=== PATIENT | female | born 1945 | race Caucasian/White ===

== ENCOUNTER 2017-01-27 11:30 | Outpatient (CLI) | payer MEDICARE, OTHER | END 2017-01-27 11:31 | DX: M05.79 Rheumatoid arthritis with rheumatoid factor of multiple sites without organ or systems involvement (principal) ==

== ENCOUNTER 2017-05-17 10:35 | Outpatient (CLI) | payer MEDICARE, OTHER ==
[2017-05-17 19:20] LABS: BASOPHILS # (AUTO) 0.1 10^3/uL (0.0-0.1); BASOPHILS % (AUTO) 1.2 %; EOSINOPHILS # (AUTO) 0.2 10^3/uL (0.0-0.7); EOSINOPHILS % (AUTO) 3.2 %; HGB - HEMOGLOBIN 13.7 g/dL (12.0-16.0); LYMPHOCYTES # (AUTO) 1.7 10^3/uL (1.5-3.5); LYMPHOCYTES % (AUTO) 35.6 %; MEAN CORPUSCULAR HEMOGLOBIN 33.2 pg (27.0-31.0); MEAN CORPUSCULAR HGB CONC 33.5 g/dL (32.0-36.0); MEAN CORPUSCULAR VOLUME 99.2 fL (81.0-99.0); MEAN PLATELET VOLUME 10.6 fL (7.9-10.8); MONOCYTES # (AUTO) 0.6 10^3/uL (0.0-1.0); NEUTROPHILS # (AUTO) 2.3 10^3/uL (1.5-6.6); NUCLEATED RED BLOOD CELLS AUTO 0.1 /100WBC; RED BLOOD COUNT 4.13 10^6/uL (4.20-5.40); RED CELL DISTRIBUTION WIDTH 13.2 % (12.0-15.0); UNCORRECTED WHITE BLOOD COUNT 4.9 x10^3/uL; WHITE BLOOD COUNT 4.9 x10^3/uL (4.8-10.8)
[2017-05-17 19:33] LABS: ALBUMIN/GLOBULIN RATIO 1.9 (1.0-2.2); BILIRUBIN,TOTAL 0.8 mg/dL (0.2-1.0); CALCIUM 9.5 mg/dL (8.5-10.3); CREATININE 0.8 mg/dL (0.4-1.0); POTASSIUM 3.9 mmol/L (3.5-5.0); TOTAL PROTEIN 6.7 g/dL (6.7-8.2)
== END 2017-05-17 10:36 ==
LOC: LAB.WCP 10:35
PROVIDERS: ATTEND Internal Medicine Rheumatology
DX: M05.79 Rheumatoid arthritis with rheumatoid factor of multiple sites without organ or systems involvement (principal)
CPT/HCPCS: 36415; 80053; 85025; 85651

== ENCOUNTER 2017-09-14 08:00 | Outpatient (CLI) | payer MEDICARE, OTHER ==
[2017-09-14 19:23] LABS: BASOPHILS # (AUTO) 0.1 10^3/uL (0.0-0.1); BASOPHILS % (AUTO) 0.9 %; EOSINOPHILS # (AUTO) 0.2 10^3/uL (0.0-0.7); EOSINOPHILS % (AUTO) 2.7 %; HCT - HEMATOCRIT 41.1 % (37.0-47.0); HGB - HEMOGLOBIN 13.4 g/dL (12.0-16.0); LYMPHOCYTES # (AUTO) 1.6 10^3/uL (1.5-3.5); LYMPHOCYTES % (AUTO) 25.5 %; MEAN CORPUSCULAR HGB CONC 32.6 g/dL (32.0-36.0); MEAN CORPUSCULAR VOLUME 101.2 fL (81.0-99.0); MEAN PLATELET VOLUME 10.6 fL (7.9-10.8); MONOCYTES # (AUTO) 0.7 10^3/uL (0.0-1.0); NEUTROPHILS # (AUTO) 3.8 10^3/uL (1.5-6.6); NEUTROPHILS % (AUTO) 59.9 %; NUCLEATED RED BLOOD CELLS AUTO 0.1 /100WBC; RED BLOOD COUNT 4.06 10^6/uL (4.20-5.40); RED CELL DISTRIBUTION WIDTH 13.7 % (12.0-15.0); UNCORRECTED WHITE BLOOD COUNT 6.3 x10^3/uL; WHITE BLOOD COUNT 6.3 x10^3/uL (4.8-10.8)
[2017-09-14 19:26] LABS: ALBUMIN/GLOBULIN RATIO 2.2 (1.0-2.2); BILIRUBIN,TOTAL 0.7 mg/dL (0.2-1.0); CALCIUM 9.5 mg/dL (8.5-10.3); CREATININE 0.7 mg/dL (0.4-1.0); POTASSIUM 3.8 mmol/L (3.5-5.0); TOTAL PROTEIN 6.3 g/dL (6.7-8.2)
== END 2017-09-14 08:01 ==
LOC: LAB.WCP 08:00
PROVIDERS: ATTEND Internal Medicine Rheumatology
DX: M05.79 Rheumatoid arthritis with rheumatoid factor of multiple sites without organ or systems involvement (principal)
CPT/HCPCS: 36415; 80053; 85025; 85651

== ENCOUNTER 2017-11-11 15:27 | Outpatient (CLI) | payer MEDICARE, OTHER ==
--- NOTE | 2017-11-12 16:31 | Mammography Report ---
DATE OF SERVICE: 11/11/2017 DIGITAL SCREENING MAMMOGRAM: 11/11/2017 CLINICAL INDICATION: A 72-year-old, for screening. COMPARISON: 02/2016, 10/2013, 02/2012, 12/2009, 02/2011. TECHNIQUE: Routine CC and MLO projections were obtained of the breasts. FINDINGS: Scattered fibroglandular tissue is present within the breasts. There are no dominant masses, suspicious microcalcifications, or secondary signs of malignancy. In comparison to the previous studies, there are no significant changes. ASSESSMENT: NO MAMMOGRAPHIC EVIDENCE OF MALIGNANCY. NO SIGNIFICANT INTERVAL CHANGES. RECOMMENDATION: Screening mammography is recommended annually. BIRADS category 1 - negative. STANDARD QUALIFYING STATEMENTS: 1. This examination was reviewed with the aid of Computed-Aided Detection (CAD). 2. A negative or benign imaging report should not delay biopsy if clinically suspicious findings are present. Consider surgical consultation if warranted. More than 5% of cancers are not identified by imaging. 3. Dense breasts may obscure an underlying neoplasm. TD: 11/12/2017 17:29
== END 2017-11-11 15:28 | disposition home or self-care (01) ==
LOC: DI 15:27
PROVIDERS: ATTEND Internal Medicine
DX: Z12.31 Encounter for screening mammogram for malignant neoplasm of breast (principal)
CPT/HCPCS: 77067

== ENCOUNTER 2018-03-30 08:00 | Outpatient (CLI) | payer MEDICARE, OTHER ==
[2018-03-30 19:38] LABS: BASOPHILS # (AUTO) 0.1 10^3/uL (0.0-0.1); BASOPHILS % (AUTO) 1.2 %; EOSINOPHILS # (AUTO) 0.2 10^3/uL (0.0-0.7); EOSINOPHILS % (AUTO) 2.2 %; HGB - HEMOGLOBIN 14.2 g/dL (12.0-16.0); LYMPHOCYTES # (AUTO) 1.9 10^3/uL (1.5-3.5); LYMPHOCYTES % (AUTO) 26.7 %; MEAN CORPUSCULAR HEMOGLOBIN 33.5 pg (27.0-31.0); MEAN CORPUSCULAR VOLUME 101.4 fL (81.0-99.0); MEAN PLATELET VOLUME 10.4 fL (7.9-10.8); MONOCYTES # (AUTO) 0.8 10^3/uL (0.0-1.0); MONOCYTES % (AUTO) 12.1 %; NEUTROPHILS # (AUTO) 4.1 10^3/uL (1.5-6.6); NEUTROPHILS % (AUTO) 57.8 %; PLT - PLATELET COUNT 185 10^3/uL (130-450); RED BLOOD COUNT 4.24 10^6/uL (4.20-5.40); RED CELL DISTRIBUTION WIDTH 13.3 % (12.0-15.0)
[2018-03-30 19:50] LABS: ALBUMIN 4.3 g/dL (3.2-5.5); ALBUMIN/GLOBULIN RATIO 1.5 (1.0-2.2); BILIRUBIN,TOTAL 0.8 mg/dL (0.2-1.0); CALCIUM 9.4 mg/dL (8.5-10.3); CREATININE 0.8 mg/dL (0.4-1.0); TOTAL PROTEIN 7.1 g/dL (6.7-8.2)
== END 2018-03-30 08:01 | disposition home or self-care (01) ==
LOC: LAB.WCP 08:00
PROVIDERS: ATTEND Internal Medicine Rheumatology
DX: M05.79 Rheumatoid arthritis with rheumatoid factor of multiple sites without organ or systems involvement (principal)
CPT/HCPCS: 36415; 80053; 83036; 85025; 85651

== ENCOUNTER 2018-07-23 10:56 | Emergency (ER) | payer MEDICARE, OTHER ==
--- NOTE | 2018-07-23 11:17 | ED Physician Documentation ---
PD HPI FEMALE - Stated complaint Stated Complaint: FEMALE - Chief complaint Chief Complaint: UTI - History obtained from History obtained from: Patient, Family - History of Present Illness Timing - onset: How many days ago (3) Timing - duration: Days (3) Timing - details: Gradual onset, Still present Associated symptoms: Dysuria, Urinary frequency Similar symptoms before: Diagnosis (UTI) Recently seen: Not recently seen - Additional information Additional information: 73-year-old female with a history of rheumatoid arthritis has had a number of urinary tract infections in the past and she now has symptoms again of urinary urgency frequency and dysuria. She said symptoms for about 3 days and she is been drinking a lot of extra fluids without resolution of her symptoms. She is noted a little blood in her urine this morning. 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 Cardiovascular: Valve replacement - Present Medications Home Medications: Ambulatory Orders Medication Instructions Recorded Confirmed Leflunomide [Arava] 10 mg PO DAILY 09/22/15 07/23/18 RX: Hydrochlorothiazide 12.5 mg PO DAILY 09/22/15 07/23/18 sulfaSALAzine [Azulfidine] 1,000 mg PO BID 09/22/15 07/23/18 Calcium Carbonate [Calcium] 1 tab PO DAILY 07/23/18 07/23/18 Cholecalciferol (Vitamin D3) 1 cap PO DAILY 07/23/18 07/23/18 [Vitamin D3] Loratadine [Claritin] 1 tab PO DAILY 07/23/18 07/23/18 Phenazopyridine [Pyridium] 100 - 200 mg PO TID PRN #12 tablet 07/23/18 RX: Aspirin [Adult Aspirin] 1 tab PO DAILY 07/23/18 07/23/18 Sulfamethoxazole/Trimethoprim 1 each PO BID #14 tablet 07/23/18 [Sulfamethoxazole-Tmp Ds Tablet] - Allergies Allergies/Adverse Reactions: Allergies Allergy/AdvReac Type Severity Reaction Status Date / Time No Known Drug Allergies Allergy Verified 07/23/18 11:18 - Social History Does the pt smoke?: No Smoking Status: Never smoker Does the pt drink ETOH?: Yes Does the pt have substance abuse?: No - Immunizations Immunizations are current?: No Immunizations: TDAP >10years/unknown - POLST Patient has POLST: No PD ED PE NORMAL - Vitals Vital signs reviewed: Yes (hypertensive ) - General General: Alert and oriented X 3, No acute distress, Well developed/nourished - HEENT HEENT: Atraumatic, PERRL - Respiratory Respiratory: No respiratory distress - Back Back: No CVA TTP, No spinal TTP - Derm Derm: Normal color, Warm and dry, No rash - Extremities Extremities: No deformity, No edema - Neuro Neuro: Alert and oriented X 3, special programs director 2-12 intact, No motor deficit, No sensory deficit, Normal speech Eye Opening: Spontaneous Motor: Obeys Commands Verbal: Oriented GCS Score: 15 - Psych Psych: Normal mood, Normal affect Results - Vitals Vitals: Vital Signs - 24 hr 07/23/18 11:02 Temperature 35.9 C L Heart Rate 88 Respiratory 18 Rate Blood Pressure 152/91 H O2 Saturation 100 Oxygen O2 Source Room air PD MEDICAL DECISION MAKING - ED course Complexity details: reviewed results, considered differential, d/w patient, d/w family ED course: 73-year-old female with a urinary tract infection without evidence of Pyelo or complication. - Sepsis Event Vital Signs: Vital Signs - 24 hr 07/23/18 11:02 Temperature 35.9 C L Heart Rate 88 Respiratory 18 Rate Blood Pressure 152/91 H O2 Saturation 100 Oxygen O2 Source Room air Departure - Departure Disposition: 01 Home, Self Care Clinical Impression: Urinary tract infection Instructions: ED UTI Cystitis Female Follow-Up: Malick Perez MD [Primary Care Provider] - Prescriptions: Phenazopyridine [Pyridium] 100 - 200 mg PO TID PRN #12 tablet PRN Reason: urinary symptoms Sulfamethoxazole/Trimethoprim [Sulfamethoxazole-Tmp Ds Tablet] 1 each PO BID #14 tablet Discharge Date/Time: 07/23/18 12:44
[2018-07-23 11:26] LABS: BILIRUBIN,URINE NEGATIVE (NEGATIVE); GLUCOSE, URINE (UA) NEGATIVE (NEGATIVE); KETONES,URINE (UA) NEGATIVE (NEGATIVE); LEUKOCYTE ESTERASE, URINE SMALL (NEGATIVE); NITRITE,URINE NEGATIVE (NEGATIVE); OCCULT BLOOD,URINE LARGE (NEGATIVE); PH,URINE 6.5 PH (5.0-7.5); PROTEIN,URINE NEGATIVE (NEGATIVE); UROBILINOGEN,URINE 0.2 (NORMAL) E.U./dL (NORMAL)
[2018-07-23 11:28] LABS: CLARITY,URINE CLEAR (CLEAR)
[2018-07-23 11:39] LABS: BACTERIA,URINE Rare /HPF (None Seen); RBC,URINE 0-5 /HPF (0-5); SQUAMOUS EPITHELIAL CELL,UR RARE Squamous (<= Few)
[2018-07-23 12:31] VITALS: BP 135/87
== END 2018-07-23 12:44 | disposition home or self-care (01) ==
LOC: ED 10:56
DX: N39.0 Urinary tract infection, site not specified (principal); I10 Essential (primary) hypertension; M06.9 Rheumatoid arthritis, unspecified; Z79.82 Long term (current) use of aspirin; Z87.440 Personal history of urinary (tract) infections; Z95.2 Presence of prosthetic heart valve
CPT/HCPCS: 81001; 81003; 87086; 87181; 99283

== ENCOUNTER 2018-09-13 13:26 | Outpatient (CLI) | payer MEDICARE, OTHER ==
[2018-09-13 13:45] LABS: BASOPHILS % (AUTO) 0.6 %; EOSINOPHILS # (AUTO) 0.1 10^3/uL (0.0-0.7); EOSINOPHILS % (AUTO) 1.7 %; HGB - HEMOGLOBIN 13.6 g/dL (12.0-16.0); LYMPHOCYTES # (AUTO) 1.8 10^3/uL (1.5-3.5); LYMPHOCYTES % (AUTO) 25.7 %; MEAN CORPUSCULAR HGB CONC 34.4 g/dL (32.0-36.0); MONOCYTES # (AUTO) 0.8 10^3/uL (0.0-1.0); MONOCYTES % (AUTO) 12.4 %; NEUTROPHILS # (AUTO) 4.1 10^3/uL (1.5-6.6); NEUTROPHILS % (AUTO) 59.6 %; PLT - PLATELET COUNT 193 10^3/uL (130-450); RED BLOOD COUNT 4.01 10^6/uL (4.20-5.40); RED CELL DISTRIBUTION WIDTH 13.2 % (12.0-15.0); WHITE BLOOD COUNT 6.8 x10^3/uL (4.8-10.8)
[2018-09-13 14:00] LABS: ALBUMIN 4.7 g/dL (3.2-5.5); ALBUMIN/GLOBULIN RATIO 2.1 (1.0-2.2); BILIRUBIN,TOTAL 0.8 mg/dL (0.2-1.0); CALCIUM 9.2 mg/dL (8.5-10.3); CREATININE 0.6 mg/dL (0.4-1.0); TOTAL PROTEIN 6.9 g/dL (6.7-8.2)
== END 2018-09-13 13:27 | disposition home or self-care (01) ==
LOC: LAB 13:26
PROVIDERS: ATTEND Internal Medicine Rheumatology
DX: M05.79 Rheumatoid arthritis with rheumatoid factor of multiple sites without organ or systems involvement (principal)
CPT/HCPCS: 36415; 80053; 85025; 85651

== ENCOUNTER 2018-12-07 12:05 | Outpatient (CLI) | payer MEDICARE, OTHER ==
[2018-12-07 19:34] LABS: EOSINOPHILS # (AUTO) 0.1 10^3/uL (0.0-0.7); EOSINOPHILS % (AUTO) 2.4 %; HGB - HEMOGLOBIN 13.3 g/dL (12.0-16.0); LYMPHOCYTES # (AUTO) 1.1 10^3/uL (1.5-3.5); LYMPHOCYTES % (AUTO) 29.4 %; MEAN CORPUSCULAR HEMOGLOBIN 34.1 pg (27.0-31.0); MEAN CORPUSCULAR HGB CONC 32.9 g/dL (32.0-36.0); MEAN CORPUSCULAR VOLUME 103.6 fL (81.0-99.0); MEAN PLATELET VOLUME 10.5 fL (7.9-10.8); MONOCYTES # (AUTO) 0.6 10^3/uL (0.0-1.0); MONOCYTES % (AUTO) 15.8 %; NEUTROPHILS # (AUTO) 1.9 10^3/uL (1.5-6.6); NEUTROPHILS % (AUTO) 51.4 %; PLT - PLATELET COUNT 170 10^3/uL (130-450); RED BLOOD COUNT 3.91 10^6/uL (4.20-5.40); WHITE BLOOD COUNT 3.7 x10^3/uL (4.8-10.8)
[2018-12-07 20:08] LABS: ALBUMIN 4.3 g/dL (3.2-5.5); ALBUMIN/GLOBULIN RATIO 2.4 (1.0-2.2); BILIRUBIN,TOTAL 0.9 mg/dL (0.2-1.0); CALCIUM 9.3 mg/dL (8.5-10.3); CREATININE 0.7 mg/dL (0.4-1.0); TOTAL PROTEIN 6.1 g/dL (6.7-8.2)
== END 2018-12-07 12:06 | disposition home or self-care (01) ==
LOC: LAB.WCP 12:05
PROVIDERS: ATTEND Internal Medicine Rheumatology
DX: M05.79 Rheumatoid arthritis with rheumatoid factor of multiple sites without organ or systems involvement (principal)
CPT/HCPCS: 36415; 80053; 85025; 85651

== ENCOUNTER 2018-12-23 18:08 | Emergency (ER) | payer MEDICARE, OTHER ==
[2018-12-23 18:33] VITALS: BP 142/91
[2018-12-23 19:59] LABS: BILIRUBIN,URINE NEGATIVE (NEGATIVE); GLUCOSE, URINE (UA) NEGATIVE (NEGATIVE); KETONES,URINE (UA) NEGATIVE (NEGATIVE); LEUKOCYTE ESTERASE, URINE SMALL (NEGATIVE); NITRITE,URINE NEGATIVE (NEGATIVE); OCCULT BLOOD,URINE TRACE-INTA (NEGATIVE); PH,URINE 6.5 PH (5.0-7.5); PROTEIN,URINE NEGATIVE (NEGATIVE); UROBILINOGEN,URINE 0.2 (NORMAL) E.U./dL (NORMAL)
--- NOTE | 2018-12-23 20:01 | ED Physician Documentation ---
PD HPI FEMALE - Stated complaint Stated Complaint: FEMALE - Chief complaint Chief Complaint: UTI - History obtained from History obtained from: Patient - History of Present Illness Timing - onset: Yesterday Timing - duration: Days (2) Timing - details: Gradual onset Pain level max: 0 Pain level max: 0 Associated symptoms: Dysuria, Urinary frequency. 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 Cardiovascular: Valve replacement - Present Medications Home Medications: Ambulatory Orders Medication Instructions Recorded Confirmed Hydrochlorothiazide 12.5 mg PO DAILY 09/22/15 07/23/18 Leflunomide [Arava] 10 mg PO DAILY 09/22/15 07/23/18 sulfaSALAzine [Azulfidine] 1,000 mg PO BID 09/22/15 07/23/18 Aspirin [Adult Aspirin] 1 tab PO DAILY 07/23/18 07/23/18 Calcium Carbonate [Calcium] 1 tab PO DAILY 07/23/18 07/23/18 Cholecalciferol (Vitamin D3) 1 cap PO DAILY 07/23/18 07/23/18 [Vitamin D3] Loratadine [Claritin] 1 tab PO DAILY 07/23/18 07/23/18 Phenazopyridine [Pyridium] 100 - 200 mg PO TID PRN #12 tablet 07/23/18 Sulfamethoxazole/Trimethoprim 1 each PO BID #14 tablet 07/23/18 [Sulfamethoxazole-Tmp Ds Tablet] Cephalexin [Keflex] 500 mg PO Q6H #20 capsule 12/23/18 Phenazopyridine HCl [Pyridium] 200 mg PO TID PRN #6 tablet 12/23/18 - Allergies Allergies/Adverse Reactions: Allergies Allergy/AdvReac Type Severity Reaction Status Date / Time No Known Drug Allergies Allergy Verified 12/23/18 18:27 - Social History Does the pt smoke?: No Smoking Status: Never smoker Does the pt drink ETOH?: Yes Does the pt have substance abuse?: No - Immunizations Immunizations are current?: No Immunizations: TDAP >10years/unknown - POLST Patient has POLST: No PD ED PE NORMAL - Vitals Vital signs reviewed: Yes - General General: Alert and oriented X 3, No acute distress, Well developed/nourished - HEENT HEENT: PERRL, Moist mucous membranes - Neck Neck: Supple, no meningeal sign - Cardiac Cardiac: RRR - Respiratory Respiratory: No respiratory distress, Clear bilaterally - Abdomen Abdomen: Soft, Non tender, Non distended - Back Back: No CVA TTP, No spinal TTP - Derm Derm: Warm and dry, No rash - Extremities Extremities: No edema - Neuro Neuro: Alert and oriented X 3 - Psych Psych: Normal mood, Normal affect Results - Vitals Vitals: Vital Signs - 24 hr 12/23/18 18:27 Temperature 36.6 C Heart Rate 84 Respiratory 16 Rate Blood Pressure 142/91 H O2 Saturation 97 Oxygen O2 Source Room air - Labs Labs: Laboratory Tests 12/23/18 19:49 Urine Color YELLOW Urine Clarity CLEAR Urine pH 6.5 Ur Specific [place] 1.015 Urine Protein NEGATIVE Urine Glucose (UA) NEGATIVE Urine Ketones NEGATIVE Urine Occult Blood TRACE-INTA Urine Nitrite NEGATIVE Urine Bilirubin NEGATIVE Urine Urobilinogen 0.2 (NORMAL) Ur Leukocyte Esterase SMALL H Urine RBC 0-5 Urine WBC 11-25 H Ur Squamous Epith Cells RARE Squamous Urine Bacteria Rare Ur Microscopic Review INDICATED Urine Culture Comments INDICATED PD MEDICAL DECISION MAKING - ED course Complexity details: reviewed results, re-evaluated patient, considered differential, d/w patient ED course: Patient with a UTI. Will place on antibiotics and follow-up with her doctor. No evidence of pyelonephritis. She is well-appearing, nontoxic. Afebrile. Patient counseled regarding signs and symptoms for which I believe and urgent re-evaluation would be necessary. Patient with good understanding of and agreement to plan and is comfortable going home at this time This document was made in part using voice recognition software. While efforts are made to proofread this document, sound alike and grammatical errors may occur. Departure - Departure Disposition: 01 Home, Self Care Clinical Impression: Urinary tract infection Qualifiers: Urinary tract infection type: acute cystitis Hematuria presence: without hematuria Qualified Code(s): N30.00 - Acute cystitis without hematuria Condition: Good Instructions: ED UTI Cystitis Female Follow-Up: Malick Perez MD [Primary Care Provider] - Within 1 week Prescriptions: Cephalexin [Keflex] 500 mg PO Q6H #20 capsule Phenazopyridine HCl [Pyridium] 200 mg PO TID PRN #6 tablet PRN Reason: dysuria Comments: Take all antibiotics until gone. Return if you worsen. Follow-up with your doctor for further care. Discharge Date/Time: 12/23/18 20:27
[2018-12-23 20:05] LABS: BACTERIA,URINE Rare /HPF (None Seen); CLARITY,URINE CLEAR (CLEAR); RBC,URINE 0-5 /HPF (0-5); SQUAMOUS EPITHELIAL CELL,UR RARE Squamous (<= Few)
[2018-12-23] MEDS ORDERED: PHENAZOPYRIDINE 100 MG TABLET PO STA (20:20)
[2018-12-23] MEDS ORDERED: cephALEXin 250 MG CAPSULE PO STA (20:20)
== END 2018-12-23 20:27 | disposition home or self-care (01) ==
LOC: ED 18:08
DX: N30.00 Acute cystitis without hematuria (principal); I10 Essential (primary) hypertension
CPT/HCPCS: 81001; 87086; 87181; 99283; A9270; 81003

== ENCOUNTER 2019-04-12 08:00 | Outpatient (CLI) | payer MEDICARE, OTHER ==
[2019-04-12 18:59] LABS: BASOPHILS # (AUTO) 0.1 10^3/uL (0.0-0.1); BASOPHILS % (AUTO) 1.5 %; EOSINOPHILS # (AUTO) 0.1 10^3/uL (0.0-0.7); EOSINOPHILS % (AUTO) 2.6 %; HGB - HEMOGLOBIN 13.2 g/dL (12.0-16.0); LYMPHOCYTES # (AUTO) 1.5 10^3/uL (1.5-3.5); LYMPHOCYTES % (AUTO) 32.5 %; MEAN CORPUSCULAR HEMOGLOBIN 32.3 pg (27.0-31.0); MEAN CORPUSCULAR HGB CONC 30.3 g/dL (32.0-36.0); MEAN CORPUSCULAR VOLUME 106.6 fL (81.0-99.0); MEAN PLATELET VOLUME 12.5 fL (7.9-10.8); MONOCYTES # (AUTO) 0.7 10^3/uL (0.0-1.0); MONOCYTES % (AUTO) 15.4 %; NEUTROPHILS # (AUTO) 2.2 10^3/uL (1.5-6.6); NEUTROPHILS % (AUTO) 47.6 %; PLT - PLATELET COUNT 186 10^3/uL (130-450); RED BLOOD COUNT 4.09 10^6/uL (4.20-5.40); RED CELL DISTRIBUTION WIDTH 13.2 % (12.0-15.0); WHITE BLOOD COUNT 4.6 x10^3/uL (4.8-10.8)
[2019-04-12 19:26] LABS: ALBUMIN 4.5 g/dL (3.2-5.5); CALCIUM 9.6 mg/dL (8.5-10.3); CREATININE 0.7 mg/dL (0.4-1.0)
== END 2019-04-12 23:59 | disposition home or self-care (01) ==
LOC: LAB.WCP 08:00
PROVIDERS: ATTEND Internal Medicine Rheumatology
DX: M05.79 Rheumatoid arthritis with rheumatoid factor of multiple sites without organ or systems involvement (principal)
CPT/HCPCS: 36415; 80053; 85025; 85651

== ENCOUNTER 2019-07-19 15:12 | Outpatient (CLI) | payer MEDICARE, OTHER ==
[2019-07-19 18:41] LABS: BASOPHILS # (AUTO) 0.1 10^3/uL (0.0-0.1); BASOPHILS % (AUTO) 1.1 %; EOSINOPHILS # (AUTO) 0.2 10^3/uL (0.0-0.7); EOSINOPHILS % (AUTO) 2.5 %; HGB - HEMOGLOBIN 13.7 g/dL (12.0-16.0); LYMPHOCYTES % (AUTO) 24.4 %; MEAN CORPUSCULAR HEMOGLOBIN 32.6 pg (27.0-31.0); MEAN CORPUSCULAR HGB CONC 31.6 g/dL (32.0-36.0); MEAN CORPUSCULAR VOLUME 103.1 fL (81.0-99.0); MEAN PLATELET VOLUME 12.3 fL (7.9-10.8); NEUTROPHILS # (AUTO) 4.8 10^3/uL (1.5-6.6); NEUTROPHILS % (AUTO) 59.6 %; PLT - PLATELET COUNT 204 10^3/uL (130-450); RED CELL DISTRIBUTION WIDTH 12.7 % (12.0-15.0)
[2019-07-19 18:57] LABS: ALBUMIN 4.7 g/dL (3.2-5.5); ALBUMIN/GLOBULIN RATIO 2.1 (1.0-2.2); BILIRUBIN,TOTAL 0.8 mg/dL (0.2-1.0); CALCIUM 9.5 mg/dL (8.5-10.3); CREATININE 0.7 mg/dL (0.4-1.0); TOTAL PROTEIN 6.9 g/dL (6.7-8.2)
== END 2019-07-19 15:13 | disposition home or self-care (01) ==
LOC: LAB.WCP 15:12
PROVIDERS: ATTEND Internal Medicine Rheumatology
DX: M06.9 Rheumatoid arthritis, unspecified (principal)
CPT/HCPCS: 36415; 80053; 85025; 85651

== ENCOUNTER 2019-09-03 20:38 | Emergency (ER) | payer MEDICARE, OTHER ==
[2019-09-03 20:52] VITALS: BP 146/89
--- NOTE | 2019-09-03 20:57 | ED Physician Documentation ---
PD HPI FEMALE - Stated complaint Stated Complaint: FEMALE - Chief complaint Chief Complaint: UTI - History obtained from History obtained from: Patient - History of Present Illness Timing - onset: Today Timing - details: Gradual onset Associated symptoms: Dysuria, Urinary frequency, Hematuria. 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 Cardiovascular: Valve replacement - Present Medications Home Medications: Ambulatory Orders Medication Instructions Recorded Confirmed Hydrochlorothiazide 12.5 mg PO DAILY 09/22/15 07/23/18 Leflunomide [Arava] 10 mg PO DAILY 09/22/15 07/23/18 sulfaSALAzine [Azulfidine] 1,000 mg PO BID 09/22/15 07/23/18 Aspirin [Adult Aspirin] 1 tab PO DAILY 07/23/18 07/23/18 Cholecalciferol (Vitamin D3) 1 cap PO DAILY 07/23/18 07/23/18 [Vitamin D3] Loratadine [Claritin] 1 tab PO DAILY 07/23/18 07/23/18 Cephalexin [Keflex] 500 mg PO Q6H #28 capsule 09/03/19 Multivitamin [Multiple Vitamins] 1 each PO DAILY 09/03/19 09/03/19 Phenazopyridine HCl [Pyridium] 200 mg PO TID PRN #6 tablet 09/03/19 - Allergies Allergies/Adverse Reactions: Allergies Allergy/AdvReac Type Severity Reaction Status Date / Time No Known Drug Allergies Allergy Verified 09/03/19 21:06 - Social History Does the pt smoke?: No Smoking Status: Never smoker Does the pt drink ETOH?: Yes Does the pt have substance abuse?: No - Immunizations Immunizations are current?: No Immunizations: TDAP >10years/unknown - POLST Patient has POLST: No PD ED PE NORMAL - Vitals Vital signs reviewed: Yes - General General: Alert and oriented X 3, No acute distress, Well developed/nourished - Abdomen Abdomen: Soft, Non tender - Back Back: No CVA TTP Results - Vitals Vitals: Vital Signs - 24 hr 09/03/19 20:49 Temperature 36.6 C Heart Rate 98 Respiratory 20 Rate Blood Pressure 146/89 H O2 Saturation 100 Oxygen O2 Source Room air - Labs Labs: Laboratory Tests 09/03/19 20:49 Urine Color RED/BLOODY Urine Clarity BLOODY Urine pH 6.0 Ur Specific [place] 1.020 Urine Protein 100 H Urine Glucose (UA) NEGATIVE Urine Ketones NEGATIVE Urine Occult Blood LARGE H Urine Nitrite POSITIVE H Urine Bilirubin NEGATIVE Urine Urobilinogen 0.2 (NORMAL) Ur Leukocyte Esterase LARGE H Urine RBC TNTC H Urine WBC 11-25 H Urine WBC Clumps PRESENT Ur Squamous Epith Cells NONE SEEN Urine Bacteria Few Ur Microscopic Review INDICATED Urine Culture Comments INDICATED PD MEDICAL DECISION MAKING - ED course Complexity details: reviewed results, considered differential, d/w patient Departure - Departure Disposition: 01 Home, Self Care Clinical Impression: Urinary tract infection Condition: Good Instructions: ED UTI Cystitis Female Follow-Up: Malick Perez MD [Primary Care Provider] - Prescriptions: Cephalexin [Keflex] 500 mg PO Q6H #28 capsule Phenazopyridine HCl [Pyridium] 200 mg PO TID PRN #6 tablet PRN Reason: dysuria Discharge Date/Time: 09/03/19 21:33
[2019-09-03 21:10] LABS: BILIRUBIN,URINE NEGATIVE (NEGATIVE); GLUCOSE, URINE (UA) NEGATIVE (NEGATIVE); KETONES,URINE (UA) NEGATIVE (NEGATIVE); LEUKOCYTE ESTERASE, URINE LARGE (NEGATIVE); NITRITE,URINE POSITIVE (NEGATIVE); OCCULT BLOOD,URINE LARGE (NEGATIVE); PROTEIN,URINE 100 mg/dL (NEGATIVE); UROBILINOGEN,URINE 0.2 (NORMAL) E.U./dL (NORMAL)
[2019-09-03 21:24] LABS: CLARITY,URINE BLOODY (CLEAR)
[2019-09-03] MEDS ORDERED: cephALEXin 250 MG CAPSULE PO STA (21:26)
[2019-09-03] MEDS ORDERED: PHENAZOPYRIDINE 100 MG TABLET PO STA (21:26)
[2019-09-03 21:31] LABS: WBC CLUMPS,URINE PRESENT
[2019-09-03 21:32] LABS: BACTERIA,URINE Few /HPF (None Seen); RBC,URINE TNTC /HPF (0-5); SQUAMOUS EPITHELIAL CELL,UR NONE SEEN (<= Few)
== END 2019-09-03 21:33 | disposition home or self-care (01) ==
LOC: ED 20:38
DX: N39.0 Urinary tract infection, site not specified (principal); I10 Essential (primary) hypertension; Z95.2 Presence of prosthetic heart valve; Z79.82 Long term (current) use of aspirin
CPT/HCPCS: 81001; 87086; 87181; 99283; A9270; 81003

== ENCOUNTER 2019-11-07 01:40 | Emergency (ER) | payer MEDICARE, OTHER ==
[2019-11-07 01:52] VITALS: BP 148/85
[2019-11-07 01:55] LABS: BILIRUBIN,URINE NEGATIVE (NEGATIVE); GLUCOSE, URINE (UA) NEGATIVE (NEGATIVE); KETONES,URINE (UA) NEGATIVE (NEGATIVE); LEUKOCYTE ESTERASE, URINE LARGE (NEGATIVE); NITRITE,URINE POSITIVE (NEGATIVE); OCCULT BLOOD,URINE LARGE (NEGATIVE); PROTEIN,URINE 100 mg/dL (NEGATIVE); UROBILINOGEN,URINE 0.2 (NORMAL) E.U./dL (NORMAL)
[2019-11-07 02:09] LABS: BACTERIA,URINE Moderate /HPF (None Seen); CLARITY,URINE CLOUDY (CLEAR); RBC,URINE TNTC /HPF (0-5); SQUAMOUS EPITHELIAL CELL,UR RARE Squamous (<= Few)
--- NOTE | 2019-11-07 02:31 | ED Physician Documentation ---
PD HPI FEMALE - Stated complaint Stated Complaint: FEM - Chief complaint Chief Complaint: UTI - History obtained from History obtained from: Patient - History of Present Illness Timing - onset: Enter time (21:00), Today Timing - details: Abrupt onset Associated symptoms: Dysuria, Urinary frequency, Hematuria. 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 Cardiovascular: Valve replacement - Present Medications Home Medications: Ambulatory Orders Medication Instructions Recorded Confirmed Hydrochlorothiazide 12.5 mg PO DAILY 09/22/15 07/23/18 Leflunomide [Arava] 10 mg PO DAILY 09/22/15 07/23/18 sulfaSALAzine [Azulfidine] 1,000 mg PO BID 09/22/15 07/23/18 Aspirin [Adult Aspirin] 1 tab PO DAILY 07/23/18 07/23/18 Cholecalciferol (Vitamin D3) 1 cap PO DAILY 07/23/18 07/23/18 [Vitamin D3] Loratadine [Claritin] 1 tab PO DAILY 07/23/18 07/23/18 Cephalexin [Keflex] 500 mg PO Q6H #28 capsule 09/03/19 Multivitamin [Multiple Vitamins] 1 each PO DAILY 09/03/19 09/03/19 Phenazopyridine HCl [Pyridium] 200 mg PO TID PRN #6 tablet 09/03/19 Nitrofurantoin Monohyd/M-Cryst 100 mg PO BID #14 capsule 11/07/19 [Macrobid 100 mg Capsule] Phenazopyridine HCl [Pyridium] 200 mg PO TID PRN #6 tablet 11/07/19 - Allergies Allergies/Adverse Reactions: Allergies Allergy/AdvReac Type Severity Reaction Status Date / Time No Known Drug Allergies Allergy Verified 09/03/19 21:06 - Social History Does the pt smoke?: No Smoking Status: Never smoker Does the pt drink ETOH?: Yes Does the pt have substance abuse?: No - Immunizations Immunizations are current?: No Immunizations: TDAP >10years/unknown, Other immun current - POLST Patient has POLST: No PD ED PE NORMAL - Vitals Vital signs reviewed: Yes - General General: Alert and oriented X 3, No acute distress, Well developed/nourished - Abdomen Abdomen: Soft, Non tender - Back Back: No CVA TTP Results - Vitals Vitals: Vital Signs - 24 hr 11/07/19 01:46 Temperature 36.5 C Heart Rate 88 Respiratory 16 Rate Blood Pressure 148/85 H O2 Saturation 95 Oxygen O2 Source Room air - Labs Labs: Laboratory Tests 11/07/19 01:46 Urine Color LT RED Urine Clarity CLOUDY Urine pH 6.0 Ur Specific [place] 1.010 Urine Protein 100 H Urine Glucose (UA) NEGATIVE Urine Ketones NEGATIVE Urine Occult Blood LARGE H Urine Nitrite POSITIVE H Urine Bilirubin NEGATIVE Urine Urobilinogen 0.2 (NORMAL) Ur Leukocyte Esterase LARGE H Urine RBC TNTC H Urine WBC >25 H Ur Squamous Epith Cells RARE Squamous Urine Bacteria Moderate H Urine Culture Comments INDICATED PD MEDICAL DECISION MAKING - ED course Complexity details: reviewed old records, considered differential, d/w patient Departure - Departure Disposition: Home, Self Care Clinical Impression: Urinary tract infection Condition: Good Instructions: ED UTI Cystitis Female Follow-Up: Malick Perez MD [Primary Care Provider] - (3-4 days if symptoms not improving) Prescriptions: Nitrofurantoin Monohyd/M-Cryst [Macrobid 100 mg Capsule] 100 mg PO BID #14 capsule Phenazopyridine HCl [Pyridium] 200 mg PO TID PRN #6 tablet PRN Reason: dysuria Discharge Date/Time: 11/07/19 02:54
[2019-11-07] MEDS ORDERED: PHENAZOPYRIDINE 100 MG TABLET PO STA (02:41)
[2019-11-07] MEDS ORDERED: NITROFURANTOIN MACRO 100 MG CAPSULE PO STA (02:41)
== END 2019-11-07 02:54 | disposition home or self-care (01) ==
LOC: ED 01:40
DX: N39.0 Urinary tract infection, site not specified (principal); R31.9 Hematuria, unspecified; I10 Essential (primary) hypertension; Z79.82 Long term (current) use of aspirin
CPT/HCPCS: 81001; 87086; 87181; 99283; A9270

== ENCOUNTER → 2019-11-22 | Outpatient (CLI) | payer MEDICARE, OTHER ==
[2019-11-22 19:23] LABS: BASOPHILS # (AUTO) 0.1 10^3/uL (0.0-0.1); BASOPHILS % (AUTO) 1.3 %; EOSINOPHILS # (AUTO) 0.2 10^3/uL (0.0-0.7); EOSINOPHILS % (AUTO) 2.6 %; HGB - HEMOGLOBIN 13.1 g/dL (12.0-16.0); LYMPHOCYTES # (AUTO) 1.5 10^3/uL (1.5-3.5); LYMPHOCYTES % (AUTO) 24.3 %; MEAN CORPUSCULAR HEMOGLOBIN 31.9 pg (27.0-31.0); MEAN CORPUSCULAR HGB CONC 30.5 g/dL (32.0-36.0); MEAN CORPUSCULAR VOLUME 104.6 fL (81.0-99.0); MEAN PLATELET VOLUME 12.3 fL (7.9-10.8); MONOCYTES # (AUTO) 0.8 10^3/uL (0.0-1.0); MONOCYTES % (AUTO) 13.4 %; NEUTROPHILS # (AUTO) 3.6 10^3/uL (1.5-6.6); NEUTROPHILS % (AUTO) 57.9 %; PLT - PLATELET COUNT 257 10^3/uL (130-450); RED BLOOD COUNT 4.11 10^6/uL (4.20-5.40); RED CELL DISTRIBUTION WIDTH 12.8 % (12.0-15.0); WHITE BLOOD COUNT 6.1 x10^3/uL (4.8-10.8)
[2019-11-22 19:40] LABS: ALBUMIN 4.3 g/dL (3.2-5.5); ALBUMIN/GLOBULIN RATIO 1.5 (1.0-2.2); BILIRUBIN,TOTAL 0.7 mg/dL (0.2-1.0); CALCIUM 9.4 mg/dL (8.5-10.3); CREATININE 0.7 mg/dL (0.4-1.0); TOTAL PROTEIN 7.2 g/dL (6.7-8.2)
== END ==
LOC: LAB.WCP 08:00
PROVIDERS: ATTEND Internal Medicine Rheumatology
DX: M05.79 Rheumatoid arthritis with rheumatoid factor of multiple sites without organ or systems involvement (principal)
CPT/HCPCS: 36415; 80053; 85025; 85651

== ENCOUNTER 2020-04-10 08:00 | Outpatient (CLI) | payer MEDICARE, OTHER ==
[2020-04-10 18:44] LABS: BASOPHILS # (AUTO) 0.1 10^3/uL (0.0-0.1); BASOPHILS % (AUTO) 0.9 %; EOSINOPHILS # (AUTO) 0.2 10^3/uL (0.0-0.7); EOSINOPHILS % (AUTO) 2.6 %; HGB - HEMOGLOBIN 13.5 g/dL (12.0-16.0); LYMPHOCYTES # (AUTO) 1.9 10^3/uL (1.5-3.5); LYMPHOCYTES % (AUTO) 28.6 %; MEAN CORPUSCULAR HEMOGLOBIN 32.9 pg (27.0-31.0); MEAN CORPUSCULAR HGB CONC 32.8 g/dL (32.0-36.0); MEAN CORPUSCULAR VOLUME 100.2 fL (81.0-99.0); MEAN PLATELET VOLUME 11.8 fL (7.9-10.8); MONOCYTES # (AUTO) 0.8 10^3/uL (0.0-1.0); MONOCYTES % (AUTO) 12.7 %; NEUTROPHILS # (AUTO) 3.6 10^3/uL (1.5-6.6); NEUTROPHILS % (AUTO) 54.4 %; PLT - PLATELET COUNT 214 10^3/uL (130-450); RED CELL DISTRIBUTION WIDTH 13.3 % (12.0-15.0); WHITE BLOOD COUNT 6.5 x10^3/uL (4.8-10.8)
[2020-04-10 19:06] LABS: ALBUMIN 4.5 g/dL (3.2-5.5); ALBUMIN/GLOBULIN RATIO 1.6 (1.0-2.2); BILIRUBIN,TOTAL 0.9 mg/dL (0.2-1.0); CALCIUM 9.3 mg/dL (8.5-10.3); CREATININE 0.8 mg/dL (0.4-1.0); TOTAL PROTEIN 7.3 g/dL (6.7-8.2)
== END 2020-04-10 23:59 | disposition home or self-care (01) ==
LOC: LAB.WCP 08:00
PROVIDERS: ATTEND Internal Medicine Rheumatology
DX: M05.79 Rheumatoid arthritis with rheumatoid factor of multiple sites without organ or systems involvement (principal)
CPT/HCPCS: 36415; 80053; 85025; 85651

== ENCOUNTER 2020-06-04 13:43 | Outpatient (CLI) | payer MEDICARE, OTHER | END 2020-06-04 13:44 | disposition home or self-care (01) | LOC: COV 13:43 | PROVIDERS: ATTEND Family Medicine | DX: Z20.828 Contact with and (suspected) exposure to other viral communicable diseases (principal) ==

== ENCOUNTER 2020-09-25 09:38 | Outpatient (CLI) | payer MEDICARE, OTHER ==
[2020-09-25 10:03] LABS: BASOPHILS # (AUTO) 0.1 10^3/uL (0.0-0.1); BASOPHILS % (AUTO) 1.1 %; EOSINOPHILS # (AUTO) 0.2 10^3/uL (0.0-0.7); EOSINOPHILS % (AUTO) 3.2 %; HGB - HEMOGLOBIN 13.5 g/dL (12.0-16.0); LYMPHOCYTES # (AUTO) 1.4 10^3/uL (1.5-3.5); LYMPHOCYTES % (AUTO) 29.1 %; MEAN CORPUSCULAR HGB CONC 32.1 g/dL (32.0-36.0); MEAN CORPUSCULAR VOLUME 99.5 fL (81.0-99.0); MEAN PLATELET VOLUME 10.9 fL (7.9-10.8); MONOCYTES # (AUTO) 0.6 10^3/uL (0.0-1.0); NEUTROPHILS # (AUTO) 2.6 10^3/uL (1.5-6.6); NEUTROPHILS % (AUTO) 54.4 %; PLT - PLATELET COUNT 182 10^3/uL (130-450); RED BLOOD COUNT 4.22 10^6/uL (4.20-5.40); RED CELL DISTRIBUTION WIDTH 12.9 % (12.0-15.0); WHITE BLOOD COUNT 4.7 x10^3/uL (4.8-10.8)
[2020-09-25 10:13] LABS: ALBUMIN 4.7 g/dL (3.2-5.5); ALBUMIN/GLOBULIN RATIO 2.4 (1.0-2.2); CALCIUM 9.5 mg/dL (8.5-10.3); CREATININE 0.8 mg/dL (0.4-1.0); TOTAL PROTEIN 6.7 g/dL (6.7-8.2)
== END 2020-09-25 09:39 | disposition home or self-care (01) ==
LOC: LAB 09:38
PROVIDERS: ATTEND Internal Medicine Rheumatology
DX: M05.79 Rheumatoid arthritis with rheumatoid factor of multiple sites without organ or systems involvement (principal)
CPT/HCPCS: 36415; 80053; 85025; 85651

== ENCOUNTER 2021-04-23 08:00 | Outpatient (CLI) | payer MEDICARE, OTHER ==
[2021-04-23 12:16] LABS: BASOPHILS % (AUTO) 0.9 %; EOSINOPHILS # (AUTO) 0.1 10^3/uL (0.0-0.7); EOSINOPHILS % (AUTO) 3.1 %; HCT - HEMATOCRIT 40.5 % (37.0-47.0); HGB - HEMOGLOBIN 12.9 g/dL (12.0-16.0); LYMPHOCYTES # (AUTO) 1.2 10^3/uL (1.5-3.5); LYMPHOCYTES % (AUTO) 26.6 %; MEAN CORPUSCULAR HGB CONC 31.9 g/dL (32.0-36.0); MEAN CORPUSCULAR VOLUME 100.5 fL (81.0-99.0); MEAN PLATELET VOLUME 11.8 fL (7.9-10.8); MONOCYTES # (AUTO) 0.5 10^3/uL (0.0-1.0); MONOCYTES % (AUTO) 11.8 %; NEUTROPHILS # (AUTO) 2.6 10^3/uL (1.5-6.6); NEUTROPHILS % (AUTO) 57.2 %; PLT - PLATELET COUNT 196 10^3/uL (130-450); RED BLOOD COUNT 4.03 10^6/uL (4.20-5.40); RED CELL DISTRIBUTION WIDTH 12.8 % (12.0-15.0); WHITE BLOOD COUNT 4.6 x10^3/uL (4.8-10.8)
[2021-04-23 12:31] LABS: ALBUMIN 4.6 g/dL (3.2-5.5); ALBUMIN/GLOBULIN RATIO 2.1 (1.0-2.2); BILIRUBIN,TOTAL 0.7 mg/dL (0.2-1.0); CALCIUM 9.3 mg/dL (8.5-10.3); CREATININE 0.7 mg/dL (0.4-1.0); POTASSIUM 3.9 mmol/L (3.5-5.0); TOTAL PROTEIN 6.8 g/dL (6.7-8.2)
== END 2021-04-23 23:59 | disposition home or self-care (01) ==
LOC: LAB.WCP 08:00
PROVIDERS: ATTEND Internal Medicine Rheumatology
DX: M05.79 Rheumatoid arthritis with rheumatoid factor of multiple sites without organ or systems involvement (principal)
CPT/HCPCS: 36415; 80053; 85025; 85651

== ENCOUNTER 2021-08-29 12:28 | Outpatient (CLI) | payer MEDICARE, OTHER ==
--- NOTE | 2021-08-29 13:27 | XRAY Report ---
PROCEDURE: Chest 2 View X-Ray INDICATIONS: SHORTNESS OF BREATH TECHNIQUE: 2 view(s) of the chest. COMPARISON: None. FINDINGS: Surgical changes and devices: Post median sternotomy and aortic valve replacement. Lungs and pleura: No pneumothorax. Blunting of the costophrenic angles. Dependent airspace opacity b ilaterally. Mediastinum: Mediastinal contours are normal. Heart size is normal. Bones and chest wall: No suspicious bony abnormalities. Soft tissues appear unremarkable. IMPRESSION: Suspect small bilateral pleural effusions and bibasilar opacity which could be due to pulmonary edema or atelectasis. Pneumonia is difficult to exclude. Reviewed by: Arben Beavers MD on 08/29/2021 1:26 PM [facility] Approved by: Arben Beavers MD on 08/29/2021 1:26 PM [facility] Station ID: [id number]
== END 2021-08-29 12:29 | disposition home or self-care (01) ==
LOC: DI 12:28
PROVIDERS: ATTEND Physician Assistant
DX: R91.8 Other nonspecific abnormal finding of lung field (principal); J90 Pleural effusion, not elsewhere classified; R06.02 Shortness of breath; R09.89 Other specified symptoms and signs involving the circulatory and respiratory systems; Z20.822 Contact with and (suspected) exposure to COVID-19
CPT/HCPCS: 71046; U0004

== ENCOUNTER 2023-01-20 14:06 | Outpatient (CLI) | payer MEDICARE, OTHER ==
--- NOTE | 2023-01-20 16:46 | DEXA Report ---
PROCEDURE: Dexa Spine and/or Hip INDICATIONS: POST MENOPAUSAL TECHNIQUE: Dual energy x-ray absorptiometry (DXA) was performed on a Sonendo System. Regions measur ed are the AP Spine, femoral neck, and if needed forearm. COMPARISON: None. FINDINGS: Lumbar Spine: Bone Mineral Density 1.4 g/cm/cm,T score 2.0, normal bone density Left Femoral Neck: Bone Mineral Density 1.1 g/cm/cm, T score 0.6, normal bone density Impression: Normal lumbar spine and left femoral neck bone density. Patients with diagnosis of osteoporosis or osteopenia should have regular bone mineral density assess ment. For those eligible for Medicare, routine testing is allowed once every 2 years. Testing frequ ency can be increased for patients who have rapidly progressing disease or for those who are receivin g medical therapy to restore bone mass. Reviewed by: Mir Thomas MD on 01/20/2023 4:44 PM PDT Approved by: Mir Thomas MD on 01/20/2023 4:44 PM PDT Station ID: [id number]
== END 2023-01-20 14:07 | disposition home or self-care (01) ==
LOC: DI 14:06
PROVIDERS: ATTEND Physician Assistant
DX: N95.8 Other specified menopausal and perimenopausal disorders (principal); Z78.0 Asymptomatic menopausal state

== ENCOUNTER 2023-02-21 11:56 | Emergency (ER) | payer MEDICARE, OTHER ==
[2023-02-21 12:09] VITALS: BP 146/87
[2023-02-21] MEDS ORDERED: NIRMATRELVIR/RITONAVIR PREPACK PO STA (12:23)
--- NOTE | 2023-02-21 12:25 | ED Physician Documentation ---
PD GLEN KIM - Stated complaint Stated Complaint: COVID+,RESP - Chief complaint Chief Complaint: Resp - History obtained from History obtained from: Patient - Additional information Additional information: This is an 78-year-old woman with history of rheumatoid arthritis and mitral valve disease. She is on leflunomide and hydroxychloroquine for her RA she has no history of renal disease. She developed a nonproductive cough, runny nose and body aches yesterday. She was also sick a couple of weeks ago but tested negative for COVID then. She was positive for COVID x2 at home yesterday. She has a specific worry about pneumonia as she has had asymptomatic or minimally symptomatic pneumonias in the past. 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 Cardiovascular: Valve replacement - Present Medications Home Medications: Ambulatory Orders Medication Instructions Recorded Confirmed Leflunomide [Arava] 20 mg PO DAILY 09/22/15 07/23/18 hydroCHLOROthiazide 12.5 mg PO DAILY 09/22/15 07/23/18 [Hydrochlorothiazide] Aspirin [Adult Aspirin] 1 tab PO DAILY 07/23/18 07/23/18 Cholecalciferol (Vitamin D3) 1 cap PO DAILY 07/23/18 07/23/18 [Vitamin D3] Multivitamin [Multiple Vitamins] 1 each PO DAILY 09/03/19 09/03/19 - Allergies Allergies/Adverse Reactions: Allergies Allergy/AdvReac Type Severity Reaction Status Date / Time No Known Drug Allergies Allergy Verified 02/21/23 12:09 - Social History Does the pt smoke?: No Smoking Status: Never smoker Does the pt drink ETOH?: Yes Does the pt have substance abuse?: No - Immunizations Immunizations are current?: No Immunizations: TDAP >10years/unknown, Other immun current - POLST Patient has POLST: No PD ED PE NORMAL - Vitals Vital signs reviewed: Yes - General General: Alert and oriented X 3, No acute distress - Respiratory Respiratory: No respiratory distress, Clear bilaterally - Abdomen Abdomen: Non tender - Derm Derm: No rash - Neuro Neuro: Alert and oriented X 3 Results - Vitals Vitals: Vital Signs - 24 hr 02/21/23 12:03 Temperature 37 C Heart Rate 85 Respiratory 16 Rate Blood Pressure 146/87 H O2 Saturation 96 Oxygen O2 Source Room air - Rads (name of study) Single view chest x-ray is unremarkable Relevant Findings:: Final report received, EMP independent interpretation of test PD Medical Decision Making - ED course ED course: 78-year-old woman with symptomatic COVID starting yesterday. She was concerned about pneumonia but this is not present on exam nor x-ray. Given her comorbidities and age we discussed antivirals and she would like to go ahead and paxlovid was dispensed. Departure - Departure Disposition: 01 Home, Self Care Clinical Impression: COVID-19 Condition: Good Record reviewed to determine appropriate education?: Yes Instructions: ED Viral Syndrome Comments: Take the antiviral, paxlovid per package instructions. Return for new or worsening symptoms. You need to quarantine strictly for the next 5 days, after that, continue to quarantine and wear a mask but it is okay to go out a little bit just not in crowded settings or unnecessarily. Discharge Date/Time: 02/21/23 13:03
--- NOTE | 2023-02-21 13:06 | XRAY Report ---
PROCEDURE: Chest 1 View X-Ray INDICATIONS: cough, covid TECHNIQUE: One view of the chest was acquired. COMPARISON: None. FINDINGS: Surgical changes and devices: None. Lungs and pleura: No pleural effusions or pneumothorax. Lungs are clear. Mediastinum: Mediastinal contours appear normal. Heart size is normal. Bones and chest wall: No suspicious bony lesions. Overlying soft tissues appear unremarkable. IMPRESSION: No airspace consolidation identified. Reviewed by: Raoul Durán MD on 02/21/2023 12:05 PM [facility] Approved by: Raoul Durán MD on 02/21/2023 12:05 PM [facility] Station ID: [id number]
== END 2023-02-21 13:03 | disposition home or self-care (01) ==
LOC: ED 11:56
DX: U07.1 COVID-19 (principal)
CPT/HCPCS: 71045; 99283; 99284; J3490

== ENCOUNTER 2023-07-25 13:33 | Emergency (ER) | payer MEDICARE, OTHER ==
[2023-07-25] MEDS ORDERED: DEXAMETHASONE 10 MG/ML VIAL PO STA (14:19)
[2023-07-25] MEDS ORDERED: CHERRY SYRUP 10 ML UDC PO ONE (14:19)
--- NOTE | 2023-07-25 14:23 | ED Physician Documentation ---
PD HPI URI - Stated complaint Stated Complaint: COUGH/WHEEZING - Chief complaint Chief Complaint: General - History obtained from History obtained from: Patient - History of Present Illness Timing - onset: How many days ago (5) Timing duration: Days (5) Timing details: Gradual onset, Still present Associated symptoms: Nasal congestion, Rhinorrhea, Sinus pain, Productive cough, Dyspnea Improves by: Rest, Medication Similar symptoms before: Diagnosis (pneumonia) Recently seen: Not recently seen - Additional information Additional information: Kandi Cross is an 78-year-old female with a history of CABG, RA and history of recurrent pneumonia. Over the past 5 days she has developed a cough productive production of sputum and a wheezing through her right nostril that is keeping her awake at night. She has tested negative for COVID. Review of Systems Constitutional: denies: Fever Eyes: denies: Decreased vision Ears: denies: Ear pain Nose: reports: Rhinorrhea / runny nose, Congestion Throat: reports: Sore throat Respiratory: reports: Dyspnea, Cough, Wheezing GI: denies: Nausea, Vomiting, Constipation, Diarrhea : denies: Dysuria, Frequency Skin: denies: Rash Musculoskeletal: denies: Neck pain, Back pain Neurologic: denies: Generalized weakness, Focal weakness, Numbness PD PAST MEDICAL HISTORY - Past Medical History Past Medical History: Yes Cardiovascular: Hypertension, Valve disorder Respiratory: None Neuro: None Endocrine/Autoimmune: None GI: None CATERING ATTENDANT: None : Frequency, Other HEENT: None Psych: None Musculoskeletal: Rheumatoid arthritis Derm: None - Past Surgical History Past Surgical History: Yes /CATERING ATTENDANT: Hysterectomy Cardiovascular: Valve replacement - Present Medications Home Medications: Ambulatory Orders Medication Instructions Recorded Confirmed Leflunomide [Arava] 20 mg PO DAILY 09/22/15 07/25/23 hydroCHLOROthiazide 12.5 mg PO DAILY 09/22/15 07/25/23 [Hydrochlorothiazide] Aspirin [Adult Aspirin] 1 tab PO DAILY 07/23/18 07/25/23 Cholecalciferol (Vitamin D3) 1 cap PO DAILY 07/23/18 07/25/23 [Vitamin D3] Multivitamin [Multiple Vitamins] 1 each PO DAILY 09/03/19 07/25/23 Amox/Clav 875/125 [Augmentin] 1 each PO Q12H #20 tablet 07/25/23 Azithromycin [Zithromax] 250 mg PO DAILY #6 tablet 07/25/23 Hydroxychloroquine [Plaquenil] 200 mg PO BID 07/25/23 07/25/23 - Allergies Allergies/Adverse Reactions: Allergies Allergy/AdvReac Type Severity Reaction Status Date / Time No Known Drug Allergies Allergy Verified 07/25/23 13:38 - Social History Does the pt smoke?: No Smoking Status: Former smoker Does the pt drink ETOH?: Yes Does the pt have substance abuse?: No - Immunizations Immunizations are current?: Yes Immunizations: TDAP >10years/unknown, Other immun current - POLST Patient has POLST: No PD ED PE NORMAL - Vitals Vital signs reviewed: Yes (hypertensive mild ) - General General: Alert and oriented X 3, No acute distress, Well developed/nourished - HEENT HEENT: Atraumatic, PERRL, EOMI, Ears normal, Moist mucous membranes, Pharynx benign, Other (left maxillary sinus point tenderness ) - Neck Neck: Supple, no meningeal sign, No bony TTP - Cardiac Cardiac: RRR, No murmur - Respiratory Respiratory: No respiratory distress, Other (Bibasilar rhonchi and upper field wheezing.) - Abdomen Abdomen: Soft, Non tender - Back Back: No CVA TTP, No spinal TTP - Derm Derm: Normal color, Warm and dry, No rash - Extremities Extremities: No deformity, No edema - Neuro Neuro: Alert and oriented X 3, 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 Postoperative and degenerative changes are seen.), EMP independent interpretation of test (On my interpretation there is a subtle infiltrate in the right base not present on prior examination. This correlates with the site of maximum rhonchi on physical examination.), See rad report PD Medical Decision Making - ED course Complexity details: reviewed old records, reviewed results, re-evaluated patient, considered differential, d/w patient ED course: Kandi Rodarte is an 78-year-old female who has had a bypass operation previously and she has had pneumonia a number of times. Today she is coming in with a cough productive of sputum for the past 5 days and she has a negative C OVID test. She has some rhonchi on examination and this corresponds to a site of infiltrate that is quite subtle on her chest x-ray. She also has tenderness to the right maxillary sinus and a chief complaint of sinus wheezing through the right side. This is bothered her enough that she is not able to sleep. Here in the emergency room she is administered a dose of dexamethasone and she is given a gram of Rocephin IM. We will treat her for pneumonia. Departure - Departure Disposition: 01 Home, Self Care Clinical Impression: Pneumonia Qualifiers: Pneumonia type: due to unspecified organism Laterality: right Lung location: lower lobe of lung Qualified Code(s): J18.9 - Pneumonia, unspecified organism Instructions: ED Pneumonia Adult Follow-Up: Malick Perez MD [Primary Care Provider] - Prescriptions: Amox/Clav 875/125 [Augmentin] 1 each PO Q12H #20 tablet Azithromycin [Zithromax] 250 mg PO DAILY #6 tablet Comments: Kandi today looks like you have a subtle pneumonia in the right lower lobe. I have E scribed some antibiotics to the [facility] in [place]. Today you were given a shot of Rocephin and a dose of dexamethasone. We are expecting improvement in your symptoms overnight. We are expecting resolution within 10 days.
[2023-07-25] MEDS ORDERED: cefTRIAXone 1 GM VIAL IM STA (14:34)
[2023-07-25] MEDS ORDERED: LIDOCAINE 1% 2 ML VIAL MC ONE (14:34)
--- NOTE | 2023-07-25 14:44 | XRAY Report ---
PROCEDURE: Chest 1 View X-Ray INDICATIONS: chest pain TECHNIQUE: One view of the chest was acquired. COMPARISON: 02/21/2023 FINDINGS: Surgical changes and devices: Sternotomy wires and an apparent aortic valve prosthesis can be seen. Lungs and pleura: No pleural effusions or pneumothorax. Lungs are clear. Mediastinum: Mediastinal contours appear normal. Heart size is normal. Bones and chest wall: No suspicious bony lesions. Age-appropriate degenerative changes are seen. O verlying soft tissues appear unremarkable. IMPRESSION: No acute cardiopulmonary process. Postoperative and degenerative changes are seen. Reviewed by: Rusty Hendricks MD on 07/25/2023 1:43 PM [facility] Approved by: Rusty Hendricks MD on 07/25/2023 1:43 PM [facility] Station ID: [id number]
[2023-07-25 15:21] VITALS: BP 130/70; O2SAT 96
== END 2023-07-25 15:18 | disposition home or self-care (01) ==
LOC: ED 13:33
DX: J18.9 Pneumonia, unspecified organism (principal); I10 Essential (primary) hypertension
CPT/HCPCS: 71045; 96372; 99283; 99284; A9270

== ENCOUNTER 2023-12-12 09:37 | Emergency (ER) | payer MEDICARE, OTHER ==
[2023-12-12 09:53] VITALS: BP 145/90; O2SAT 100
--- NOTE | 2023-12-12 10:20 | XRAY Report ---
PROCEDURE: Chest 2V INDICATIONS: cough x 1 week TECHNIQUE: 2 views of the chest were acquired. COMPARISON: 07/25/2023, 02/21/2023 , 08/29/2021 FINDINGS: Surgical changes and devices: Sternotomy wires an apparent mitral valve prosthesis can be seen. Lungs and pleura: No pleural effusions or pneumothorax. Lungs are clear. Flattening of the hemidia phragms can be seen on the lateral view. Mediastinum: The aorta is prominent and tortuous. The cardiac contours are within normal limits. Bones and chest wall: No suspicious bony lesions. Age-appropriate degenerative changes are seen. T here is accentuated thoracic kyphosis. Overlying soft tissues appear unremarkable. IMPRESSION: Hyperexpanded lungs are seen, without an acute cardiopulmonary abnormality seen. Postoperative and degenerative changes are seen. Reviewed by: Rusty Hendricks MD on 12/12/2023 9:19 AM [facility] Approved by: Rusty Hendricks MD on 12/12/2023 9:19 AM [facility] Station ID: [id number]
[2023-12-12 10:52] LABS: B. PARAPERTUSSIS- RESP PCR PAN NOT DETECTED; B. PERTUSSIS- RESP PCR PANEL NOT DETECTED; C. PNEUMONIAE- RESP PCR PANEL NOT DETECTED; CORONAVIRUS 229E-RESP PCR NOT DETECTED; CORONAVIRUS HKU1-RESP PCR NOT DETECTED; CORONAVIRUS NL63-RESP PCR NOT DETECTED; CORONAVIRUS OC43-RESP PCR NOT DETECTED; HUMAN METAPNEUMOVIRUS NOT DETECTED; INFLUENZA A- RESP PCR PANEL NOT DETECTED; INFLUENZA B - RESP PCR PANEL NOT DETECTED; M. PNEUMONIAE- RESP PCR PANEL NOT DETECTED; PARAINFLUENZA VIRUS 1 NOT DETECTED; PARAINFLUENZA VIRUS 2 NOT DETECTED; PARAINFLUENZA VIRUS 3 NOT DETECTED; PARAINFLUENZA VIRUS 4 NOT DETECTED; RHINOVIRUS/ENTEROVIRUS NOT DETECTED; RSV- RESP PCR PANEL NOT DETECTED
[2023-12-12 10:55] LABS: SARS-CoV-2 -RESP PCR PANEL DETECTED
--- NOTE | 2023-12-12 11:21 | ED Physician Documentation ---
History of Present Illness - Stated complaint Stated Complaint: CONGESTION/NO SMELL - Chief complaint Chief Complaint: Resp - History obtained from History obtained from: Patient - Additonal information Additional information: This is a lynda 78-year-old woman with history of rheumatoid arthritis on leflunomide and hydroxychloroquine. She been sick for about a week with a cough minimally productive, it is especially bad at night and keeping her up. She has had some sinus drainage and bodyaches and today she lost her sense of smell. On the first day of the illness she did check for COVID which was a week ago and was negative for home COVID test at that time. PD PAST MEDICAL HISTORY - Past Medical History Past Medical History: Yes Cardiovascular: Hypertension, Valve disorder Respiratory: None Neuro: None Endocrine/Autoimmune: None GI: None TRADER: None : Frequency, Other HEENT: None Psych: None Musculoskeletal: Rheumatoid arthritis Derm: None - Past Surgical History Past Surgical History: Yes /TRADER: Hysterectomy Cardiovascular: Valve replacement - Present Medications Home Medications: Ambulatory Orders Medication Instructions Recorded Confirmed Leflunomide [Arava] 20 mg PO DAILY 09/22/15 07/25/23 hydroCHLOROthiazide 12.5 mg PO DAILY 09/22/15 07/25/23 [Hydrochlorothiazide] Aspirin [Adult Aspirin] 1 tab PO DAILY 07/23/18 07/25/23 Cholecalciferol (Vitamin D3) 1 cap PO DAILY 07/23/18 07/25/23 [Vitamin D3] Multivitamin [Multiple Vitamins] 1 each PO DAILY 09/03/19 07/25/23 Amox/Clav 875/125 [Augmentin] 1 each PO Q12H #20 tablet 07/25/23 Azithromycin [Zithromax] 250 mg PO DAILY #6 tablet 07/25/23 Hydroxychloroquine [Plaquenil] 200 mg PO BID 07/25/23 07/25/23 Albuterol Sulf [Ventolin Hfa 1 - 2 puffs INH Q4HR PRN #1 each 12/12/23 Inhaler] Benzonatate [Tessalon] 200 mg PO TID PRN #20 cap 12/12/23 guaiFENesin/CODEINE [Robitussin AC] 5 - 10 ml PO Q6H PRN #120 ml 12/12/23 - Allergies Allergies/Adverse Reactions: Allergies Allergy/AdvReac Type Severity Reaction Status Date / Time No Known Drug Allergies Allergy Verified 12/12/23 09:52 - Social History Does the pt smoke?: No Smoking Status: Never smoker Does the pt drink ETOH?: Yes Does the pt have substance abuse?: No - Immunizations Immunizations are current?: Yes Immunizations: TDAP >10years/unknown, Other immun current - POLST Patient has POLST: No PD ED PE NORMAL - Vitals Vital signs reviewed: Yes - General General: Alert and oriented X 3, No acute distress - HEENT HEENT: Ears normal, Pharynx benign, Other (No sinus tenderness) - Neck Neck: Supple, no meningeal sign, No bony TTP - Cardiac Cardiac: RRR, No murmur - Respiratory Respiratory: No respiratory distress, Clear bilaterally - Abdomen Abdomen: Non tender - Neuro Neuro: Alert and oriented X 3, Normal speech Results - Vitals Vitals: Vital Signs - 24 hr 12/12/23 09:49 Temperature 36.0 C L Heart Rate 96 Respiratory 20 Rate Blood Pressure 145/90 H O2 Saturation 100 Oxygen O2 Source Room air - Labs Labs: Laboratory Tests 12/12/23 09:50 Nasal Adenovirus (PCR) NOT DETECTED Nasal B. parapertussis DNA (PCR) NOT DETECTED Nasal Coronavir 229E PCR NOT DETECTED Nasal Coronavir HKU1 PCR NOT DETECTED Nasal Coronavir NL63 PCR NOT DETECTED Nasal Coronavir OC43 PCR NOT DETECTED Nasal Enterovir/Rhinovir PCR NOT DETECTED Nasal Influenza B PCR NOT DETECTED Nasal Influenza A PCR NOT DETECTED Nasal Parainfluen 1 PCR NOT DETECTED Nasal Parainfluen 2 PCR NOT DETECTED Nasal Parainfluen 3 PCR NOT DETECTED Nasal Parainfluen 4 PCR NOT DETECTED Nasal RSV (PCR) NOT DETECTED Nasal B.pertussis DNA PCR NOT DETECTED Nasal C.pneumoniae (PCR) NOT DETECTED Oscar Human Metapneumo PCR NOT DETECTED Nasal M.pneumoniae (PCR) NOT DETECTED Nasal SARS-CoV-2 (PCR) DETECTED A - Rads (name of study) 1v cxr- hyperexpanded Relevant Findings:: Final report received, EMP independent interpretation of test PD Medical Decision Making - ED course ED course: 78-year-old woman with COVID, no evidence of bacterial superinfection. No evidence of pneumonia, otitis, sinusitis. She is outside of the window that we would expect paxlovid to be helpful. Departure - Departure Disposition: 01 Home, Self Care Clinical Impression: COVID-19 Condition: Good Record reviewed to determine appropriate education?: Yes Instructions: ED Viral Syndrome Prescriptions: Albuterol Sulf [Ventolin Hfa Inhaler] 1 - 2 puffs INH Q4HR PRN #1 each PRN Reason: Shortness Of Air/Wheezing guaiFENesin/CODEINE [Robitussin AC] 5 - 10 ml PO Q6H PRN #120 ml PRN Reason: Cough Benzonatate [Tessalon] 200 mg PO TID PRN #20 cap PRN Reason: Cough Comments: I sent your prescriptions electronically to the [facility] in [place]. As discussed you are positive for COVID, I do not see any evidence of bacterial superinfection such as sinus infection or pneumonia and your chest x-ray is clear with the exception of "hyperexpanded lungs." Drink plenty of fluids and I think you will be turning around in the over the next couple of days. You should wear a mask for a few more days. Buy Mucinex which is available [id number] in addition to the prescription medications. Return if worse.
== END 2023-12-12 11:25 | disposition home or self-care (01) ==
LOC: ED 09:37
DX: U07.1 COVID-19 (principal); I10 Essential (primary) hypertension; Z79.899 Other long term (current) drug therapy; Z79.82 Long term (current) use of aspirin
CPT/HCPCS: 87633; 99283

== ENCOUNTER 2024-04-28 06:21 | Inpatient (IN) | payer MEDICARE, OTHER ==
[2024-04-28] MEDS ORDERED: ALBUTEROL NEB 2.5 MG/3 ML INH ONE (06:55)
[2024-04-28] MEDS: ALBUTEROL NEB 2.5 MG/3 ML INH STA (06:56)
[2024-04-28 07:01] LABS: BASOPHILS # (AUTO) 0.1 10^3/uL (0.0-0.1); BASOPHILS % (AUTO) 0.8 %; EOSINOPHILS # (AUTO) 0.2 10^3/uL (0.0-0.7); EOSINOPHILS % (AUTO) 1.5 %; HCT - HEMATOCRIT 44.5 % (37.0-47.0); HGB - HEMOGLOBIN 14.3 g/dL (12.0-16.0); LYMPHOCYTES # (AUTO) 1.2 10^3/uL (1.5-3.5); LYMPHOCYTES % (AUTO) 10.7 %; MEAN CORPUSCULAR HEMOGLOBIN 31.2 pg (27.0-31.0); MEAN CORPUSCULAR HGB CONC 32.1 g/dL (32.0-36.0); MEAN CORPUSCULAR VOLUME 96.9 fL (81.0-99.0); MEAN PLATELET VOLUME 10.9 fL (7.9-10.8); MONOCYTES # (AUTO) 0.9 10^3/uL (0.0-1.0); MONOCYTES % (AUTO) 8.2 %; NEUTROPHILS # (AUTO) 8.5 10^3/uL (1.5-6.6); NEUTROPHILS % (AUTO) 78.5 %; PLT - PLATELET COUNT 163 10^3/uL (130-450); RED BLOOD COUNT 4.59 10^6/uL (4.20-5.40); RED CELL DISTRIBUTION WIDTH 13.3 % (12.0-15.0); WHITE BLOOD COUNT 10.8 x10^3/uL (4.8-10.8)
[2024-04-28 07:04] LABS: INR 1.4 (0.8-1.2); PT - PROTHROMBIN TIME 14.7 secs (9.9-12.6)
[2024-04-28 07:13] LABS: ALBUMIN 4.7 g/dL (3.2-5.5); ALBUMIN/GLOBULIN RATIO 1.5 (1.0-2.2); CALCIUM 9.5 mg/dL (8.5-10.3); CREATININE 0.8 mg/dL (0.6-1.3); POTASSIUM 3.2 mmol/L (3.5-4.5); TOTAL PROTEIN 7.9 g/dL (6.4-8.9)
[2024-04-28 07:26] LABS: TROPONIN I HIGH SENSITIVITY 17.1 ng/L (2.3-14.8)
--- NOTE | 2024-04-28 07:36 | ED Physician Documentation ---
PD HPI URI - Stated complaint Stated Complaint: TOM ROBBINS - Chief complaint Chief Complaint: Resp - History obtained from History obtained from: Patient, Family - History of Present Illness Timing - onset: How many days ago (3) Timing duration: Days (3) Timing details: Gradual onset, Still present Associated symptoms: Chills, Nasal congestion, Rhinorrhea, Dry cough, Dyspnea Improves by: Rest, MDI/nebulizer (given here) Worsened by: Activity Similar symptoms before: Diagnosis (pneumonai) Recently seen: Not recently seen - Additional information Additional information: Kandi Briggs is an 79-year-old female is had a prior history of pneumonia and she presents today with 3 days of a cough. Productive of sputum and she is found to be hypoxic in triage. She is placed on the oxygen. She is given a albuterol treatment. Review of Systems Constitutional: reports: Chills. denies: Fever Eyes: denies: Photophobia Ears: reports: Ear pain Nose: reports: Rhinorrhea / runny nose, Congestion Throat: denies: Sore throat Cardiac: denies: Chest pain / pressure, Palpitations Respiratory: reports: Dyspnea, Cough, Wheezing GI: denies: Abdominal Pain, Nausea, Vomiting, Constipation, Diarrhea : reports: Frequency. 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 : Frequency, Other HEENT: None Psych: None Musculoskeletal: Rheumatoid arthritis Derm: None - Past Surgical History Past Surgical History: Yes /COMMODITY BROKER: Hysterectomy Cardiovascular: Valve replacement - Present Medications Home Medications: Ambulatory Orders Medication Instructions Recorded Confirmed Leflunomide [Arava] 20 mg PO DAILY 09/22/15 04/28/24 hydroCHLOROthiazide 12.5 mg PO DAILY 09/22/15 04/28/24 [Hydrochlorothiazide] Aspirin [Adult Aspirin] 1 tab PO DAILY 07/23/18 04/28/24 Cholecalciferol (Vitamin D3) 1 cap PO DAILY 07/23/18 04/28/24 [Vitamin D3] Multivitamin [Multiple Vitamins] 1 each PO DAILY 09/03/19 04/28/24 Hydroxychloroquine [Plaquenil] 200 mg PO BID 07/25/23 04/28/24 - Allergies Allergies/Adverse Reactions: Allergies Allergy/AdvReac Type Severity Reaction Status Date / Time No Known Drug Allergies Allergy Verified 12/12/23 09:52 - Social History Does the pt smoke?: No Smoking Status: Never smoker Does the pt drink ETOH?: Yes Does the pt have substance abuse?: No - Immunizations Immunizations are current?: Yes Immunizations: TDAP >10years/unknown, Other immun current - POLST Patient has POLST: No PD ED PE NORMAL - Vitals Vital signs reviewed: Yes (Tachycardic tachypneic and hypoxic.) - General General: Well developed/nourished, Other (pale appearing 79 y/o female mild anxiety) - HEENT HEENT: Atraumatic, PERRL, EOMI - Neck Neck: Supple, no meningeal sign, No bony TTP - Cardiac Cardiac: No murmur, Other (tachy to 110) - Respiratory Respiratory: Other (tachypneic at rest inspritory/expritory rhonchi bilat) - Abdomen Abdomen: Soft, Non tender - Back Back: No CVA TTP, No spinal TTP - Derm Derm: Normal color, Warm and dry, No rash - Extremities Extremities: No deformity, No edema - Neuro Neuro: Alert and oriented X 3, management accounts manager 2-12 intact, No motor deficit, No sensory deficit, Normal speech Eye Opening: Spontaneous Motor: Obeys Commands Verbal: Oriented GCS Score: 15 - Psych Psych: Normal mood, Normal affect Results - Vitals Vitals: Vital Signs - 24 hr 04/28/24 04/28/24 04/28/24 06:30 06:58 07:00 Temperature 36.1 C L Heart Rate 103 H 104 H 95 Respiratory 24 22 22 Rate Blood Pressure 111/80 134/97 H O2 Saturation 83 L 99 If not protocol 2 2 : Oxygen Flow, liters/minute 04/28/24 04/28/24 04/28/24 07:34 09:21 11:21 Temperature 37.8 C 38.1 C H Heart Rate 104 H 98 99 Respiratory 20 20 18 Rate Blood Pressure 134/97 H 142/71 H 151/84 H O2 Saturation 91 L 92 92 If not protocol 1.5 1.5 : Oxygen Flow, liters/minute 04/28/24 11:44 Temperature 37.3 C Heart Rate Respiratory Rate Blood Pressure O2 Saturation If not protocol : Oxygen Flow, liters/minute Oxygen O2 Source Nasal cannula Oxygen Flow Rate 2 - EKG (time done) 0717 EKG releavant findings:: EKG personally interpreted by author of this note. Relevant findings are: Rate: Rate (enter#) Rhythm: Sinus tachycardia Intervals: RBBB Ischemia: Non specific changes, Other (subtle ST elevation III aVF) Compare to prior EKG: Old EKG unavailable Computer interpretation: Agree with computer - Labs Labs: Laboratory Tests 04/28/24 04/28/24 04/28/24 06:54 06:54 06:54 WBC 10.8 RBC 4.59 Hgb 14.3 Hct 44.5 MCV 96.9 MCH 31.2 H MCHC 32.1 RDW 13.3 Plt Count 163 MPV 10.9 H Neut # (Auto) 8.5 H Lymph # (Auto) 1.2 L [place] # (Auto) 0.9 Eos # (Auto) 0.2 Baso # (Auto) 0.1 Absolute Nucleated RBC 0.00 Nucleated RBC % 0.0 PT 14.7 H INR 1.4 H Sodium 137 Potassium 3.2 L Chloride 99 L Carbon Dioxide 29 Anion Gap 9.0 BUN 17 Creatinine 0.8 Estimated GFR (MDRD) 69 L Glucose 107 H Calcium 9.5 Total Bilirubin 1.0 AST 15 ALT 12 Alkaline Phosphatase 58 Troponin I High Sens 17.1 H* B-Natriuretic Peptide Total Protein 7.9 Albumin 4.7 Globulin 3.2 Albumin/Globulin Ratio 1.5 Urine Color Urine Clarity Urine pH Ur Specific [place] Urine Protein Urine Glucose (UA) Urine Ketones Urine Occult Blood Urine Nitrite Urine Bilirubin Urine Urobilinogen Ur Leukocyte Esterase Urine RBC Urine WBC Urine WBC Clumps Ur Squamous Epith Cells Urine Bacteria Urine Casts Ur Microscopic Review Urine Culture Comments Nasal Adenovirus (PCR) Nasal B. parapertussis DNA (PCR) Nasal Coronavir 229E PCR Nasal Coronavir HKU1 PCR Nasal Coronavir NL63 PCR Nasal Coronavir OC43 PCR Nasal Enterovir/Rhinovir PCR Nasal Influenza B PCR Nasal Influenza A PCR Nasal Parainfluen 1 PCR Nasal Parainfluen 2 PCR Nasal Parainfluen 3 PCR Nasal Parainfluen 4 PCR Nasal RSV (PCR) Nasal B.pertussis DNA PCR Nasal C.pneumoniae (PCR) Oscar Human Metapneumo PCR Nasal M.pneumoniae (PCR) Nasal SARS-CoV-2 (PCR) 04/28/24 04/28/24 04/28/24 06:54 07:03 08:54 WBC RBC Hgb Hct MCV MCH MCHC RDW Plt Count MPV Neut # (Auto) Lymph # (Auto) [place] # (Auto) Eos # (Auto) Baso # (Auto) Absolute Nucleated RBC Nucleated RBC % PT INR Sodium Potassium Chloride Carbon Dioxide Anion Gap BUN Creatinine Estimated GFR (MDRD) Glucose Calcium Total Bilirubin AST ALT Alkaline Phosphatase Troponin I High Sens B-Natriuretic Peptide 297 H Total Protein Albumin Globulin Albumin/Globulin Ratio Urine Color YELLOW Urine Clarity SL. CLOUDY Urine pH 6.0 Ur Specific [place] >=1.030 H Urine Protein 30 H Urine Glucose (UA) NEGATIVE Urine Ketones NEGATIVE Urine Occult Blood MODERATE H Urine Nitrite NEGATIVE Urine Bilirubin NEGATIVE Urine Urobilinogen 0.2 (NORMAL) Ur Leukocyte Esterase TRACE H Urine RBC 6-10 H Urine WBC 6-10 H Urine WBC Clumps PRESENT Ur Squamous Epith Cells NONE SEEN Urine Bacteria Moderate H Urine Casts 0-2 Hyaline Casts Ur Microscopic Review INDICATED Urine Culture Comments INDICATED Nasal Adenovirus (PCR) NOT DETECTED Nasal B. parapertussis DNA (PCR) NOT DETECTED Nasal Coronavir 229E PCR NOT DETECTED Nasal Coronavir HKU1 PCR NOT DETECTED Nasal Coronavir NL63 PCR NOT DETECTED Nasal Coronavir OC43 PCR NOT DETECTED Nasal Enterovir/Rhinovir PCR NOT DETECTED Nasal Influenza B PCR NOT DETECTED Nasal Influenza A PCR NOT DETECTED Nasal Parainfluen 1 PCR NOT DETECTED Nasal Parainfluen 2 PCR NOT DETECTED Nasal Parainfluen 3 PCR NOT DETECTED Nasal Parainfluen 4 PCR NOT DETECTED Nasal RSV (PCR) NOT DETECTED Nasal B.pertussis DNA PCR NOT DETECTED Nasal C.pneumoniae (PCR) NOT DETECTED Oscar Human Metapneumo PCR NOT DETECTED Nasal M.pneumoniae (PCR) DETECTED A Nasal SARS-CoV-2 (PCR) NOT DETECTED 04/28/24 04/28/24 09:56 12:20 WBC RBC Hgb Hct MCV MCH MCHC RDW Plt Count MPV Neut # (Auto) Lymph # (Auto) [place] # (Auto) Eos # (Auto) Baso # (Auto) Absolute Nucleated RBC Nucleated RBC % PT INR Sodium Potassium Chloride Carbon Dioxide Anion Gap BUN Creatinine Estimated GFR (MDRD) Glucose Calcium Total Bilirubin AST ALT Alkaline Phosphatase Troponin I High Sens 26.9 H* 40.4 H* B-Natriuretic Peptide Total Protein Albumin Globulin Albumin/Globulin Ratio Urine Color Urine Clarity Urine pH Ur Specific [place] Urine Protein Urine Glucose (UA) Urine Ketones Urine Occult Blood Urine Nitrite Urine Bilirubin Urine Urobilinogen Ur Leukocyte Esterase Urine RBC Urine WBC Urine WBC Clumps Ur Squamous Epith Cells Urine Bacteria Urine Casts Ur Microscopic Review Urine Culture Comments Nasal Adenovirus (PCR) Nasal B. parapertussis DNA (PCR) Nasal Coronavir 229E PCR Nasal Coronavir HKU1 PCR Nasal Coronavir NL63 PCR Nasal Coronavir OC43 PCR Nasal Enterovir/Rhinovir PCR Nasal Influenza B PCR Nasal Influenza A PCR Nasal Parainfluen 1 PCR Nasal Parainfluen 2 PCR Nasal Parainfluen 3 PCR Nasal Parainfluen 4 PCR Nasal RSV (PCR) Nasal B.pertussis DNA PCR Nasal C.pneumoniae (PCR) Oscar Human Metapneumo PCR Nasal M.pneumoniae (PCR) Nasal SARS-CoV-2 (PCR) - Rads (name of study) chest Relevant Findings:: Prelim report reviewed (Impression: Predominantly hazy left mid/lower lung atelectasis/infiltrate plus minus pulmonary edematous changes cardiomegaly. Postsurgical cardiac changes.), EMP independent interpretation of test, See rad report Procedures - IVC sono (time) 0730 Bedside IVC sono: IVC measures (cm) (0.66), IVC collapsed c insp (cm) (complete), Significant dehydration (est 3 liter deficit) PD Medical Decision Making - ED course Complexity details: reviewed old records, reviewed results, re-evaluated patient, considered differential, d/w patient, d/w family, d/w reporting consultant (Dr. Barrett cardiology at [facility] recommends conservative treatment for mild trop elevations likely related to hypoxia and volume depletion. ) Reviewed Lab Results: We reviewed a complete blood count showing a normal white blood cell count of 10.8 and normal hemoglobin hematocrit and platelets and normal indices coags showed an INR of 1.4 chemistries showed a low potassium at 3.2 kidney function normal liver function normal troponin high-sensitivity minimally elevated at 17.1 with repeat at elevated at 26.9. Nasal swab was positive for mycoplasma pn eumonia. A chest x-ray reveals bibasilar infiltrate. These laboratory and ancillary studies are consistent with the patient's presentation of pneumonia and dehydration associated with tachycardia and hypoxia. These make the low levels of troponin elevation consistent with a strain pattern. ED course: 79-year-old female with recurrence of a pneumonia appears to have a mycoplasma pneumonia she is treated here in the emergency department with Rocephin and azithromycin intravenously as well as intravenous fluid. She has improvement in her oxygen saturation with application of oxygen and administration of albuterol. Dr. Galvez is consulted on the case and will admit the patient to the hospital for continued care. She has low grade elevation in her trop consistent with a strain pattern. Departure - Departure Disposition: [facility] [place] DC/Xfer Clinical Impression: Dehydration Pneumonia Qualifiers: Pneumonia type: due to unspecified organism Laterality: bilateral Lung location: lower lobe of lung Qualified Code(s): J18.9 - Pneumonia, unspecified organism Urinary tract infection Qualifiers: Urinary tract infection type: acute cystitis Hematuria presence: with hematuria Qualified Code(s): N30.01 - Acute cystitis with hematuria Condition: Stable Forms: PCP List
[2024-04-28] MEDS ORDERED: cefTRIAXone 1 GM VIAL ONE (07:43)
[2024-04-28] MEDS: SODIUM CHLORIDE 0.9% 1,000 ML IV STA ×2 (07:44→11:13)
[2024-04-28] MEDS: cefTRIAXone 1 GM in SODIUM CHLORIDE 0.9% MINIBAG 100 ML IV STA (07:45)
[2024-04-28 08:03] LABS: B. PARAPERTUSSIS- RESP PCR PAN NOT DETECTED; B. PERTUSSIS- RESP PCR PANEL NOT DETECTED; C. PNEUMONIAE- RESP PCR PANEL NOT DETECTED; CORONAVIRUS 229E-RESP PCR NOT DETECTED; CORONAVIRUS HKU1-RESP PCR NOT DETECTED; CORONAVIRUS NL63-RESP PCR NOT DETECTED; CORONAVIRUS OC43-RESP PCR NOT DETECTED; HUMAN METAPNEUMOVIRUS NOT DETECTED; INFLUENZA A- RESP PCR PANEL NOT DETECTED; INFLUENZA B - RESP PCR PANEL NOT DETECTED; M. PNEUMONIAE- RESP PCR PANEL DETECTED; PARAINFLUENZA VIRUS 1 NOT DETECTED; PARAINFLUENZA VIRUS 2 NOT DETECTED; PARAINFLUENZA VIRUS 3 NOT DETECTED; PARAINFLUENZA VIRUS 4 NOT DETECTED; RHINOVIRUS/ENTEROVIRUS NOT DETECTED; RSV- RESP PCR PANEL NOT DETECTED; SARS-CoV-2 -RESP PCR PANEL NOT DETECTED
[2024-04-28] MEDS: AZITHROMYCIN INJ 500 MG in SODIUM CHLORIDE 0.9% 250 ML IV STA (08:50)
[2024-04-28 09:05] LABS: BILIRUBIN,URINE NEGATIVE (NEGATIVE); GLUCOSE, URINE (UA) NEGATIVE (NEGATIVE); KETONES,URINE (UA) NEGATIVE (NEGATIVE); LEUKOCYTE ESTERASE, URINE TRACE (NEGATIVE); NITRITE,URINE NEGATIVE (NEGATIVE); OCCULT BLOOD,URINE MODERATE (NEGATIVE); PROTEIN,URINE 30 mg/dL (NEGATIVE); UROBILINOGEN,URINE 0.2 (NORMAL) E.U./dL (NORMAL)
[2024-04-28 09:17] LABS: CLARITY,URINE SL. CLOUDY (CLEAR)
[2024-04-28] MEDS ORDERED: ACETAMINOPHEN 325 MG TABLET PO STA (09:27)
[2024-04-28] MEDS ORDERED: POTASSIUM CHLOR 10 MEQ/100 ML 10 MEQ/100 ML BAG IV ONE (09:28)
[2024-04-28 09:35] LABS: BACTERIA,URINE Moderate /HPF (None Seen); CASTS, URINE 0-2 Hyaline Casts /LPF; SQUAMOUS EPITHELIAL CELL,UR NONE SEEN (<= Few); WBC CLUMPS,URINE PRESENT
--- NOTE | 2024-04-28 09:58 | XRAY Report ---
PROCEDURE: Chest 1V INDICATIONS: dyspnea, hypoxia TECHNIQUE: One view of the chest was acquired. COMPARISON: Chest x-ray 12/12/2023 FINDINGS: Surgical changes and devices: Sternal wires and valve replacement. Lungs and pleura: Hazy opacities identified within the left mid and lower lobe. Mediastinum: Mediastinal contours appear normal. Heart size is enlarged. Bones and chest wall: No suspicious bony lesions. Overlying soft tissues appear unremarkable. IMPRESSION: Cardiomegaly with hazy left lower lobe opacities. This could represent developing pneumonia versus at electasis/edema. The above findings are concordant with preliminary report. Reviewed by: Anne-Marie Monge MD on 04/28/2024 9:57 AM PDT Approved by: Anne-Marie Monge MD on 04/28/2024 9:57 AM PDT Station ID: [id number]
[2024-04-28] MEDS: POTASSIUM CHLOR 10 MEQ/100 ML 10 MEQ/100 ML BAG IV ONE (11:13)
[2024-04-28] MEDS: ACETAMINOPHEN 325 MG TABLET PO STA (11:14)
--- NOTE | 2024-04-28 13:01 | HISTORY & PHYSICAL EXAMINATION ---
Chief Complaint - Chief Complaint Chief Complaint: Cough History of Present Illness - History of Present Illness HPI Comment/Other: Patient is a 79 y/o female with a hx of mitral valve repair and pneumonia presents to the ED with a cough. Her symptoms began 5 days ago and has gradually gotten worse. She was in the ED last July 2023 for pneumonia. She does water aerobic 3 times a week and she gets tired after. She has a cardiology appointment on 05/08. She has not been able to lay flat in bed. 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 : reports: Frequency, Other HEENT: reports: None Psych: reports: None Musculoskeletal: reports: Rheumatoid arthritis Derm: reports: None MRSA Hx?: No - Past Surgical History /DYE HOUSE SUPERVISOR: reports: Hysterectomy Cardiovascular: reports: Valve replacement - POLST Patient has POLST: No Meds/Allgy - Home Medications Home Medications: Ambulatory Orders Medication Instructions Recorded Confirmed Leflunomide [Arava] 20 mg PO DAILY 09/22/15 04/28/24 hydroCHLOROthiazide 12.5 mg PO DAILY 09/22/15 04/28/24 [Hydrochlorothiazide] Aspirin [Adult Aspirin] 1 tab PO DAILY 07/23/18 04/28/24 Cholecalciferol (Vitamin D3) 1 cap PO DAILY 07/23/18 04/28/24 [Vitamin D3] Multivitamin [Multiple Vitamins] 1 each PO DAILY 09/03/19 04/28/24 Hydroxychloroquine [Plaquenil] 200 mg PO BID 07/25/23 04/28/24 Krill/Colby-3/Dha/Epa/Lipids 1 each PO DAILY 04/28/24 04/28/24 [Krill Oil 350 mg Softgel] - Allergies Allergies/Adverse Reactions: Allergies Allergy/AdvReac Type Severity Reaction Status Date / Time No Known Drug Allergies Allergy Verified 12/12/23 09:52 Review of Systems - Constitutional Constitutional: reports: Fatigue, Chills, Weakness, Weight loss. denies: Fever - Eyes Eyes: denies: Blurred vision, Spots in vision, Vision loss, Dipolpia - Cardiovascular Cariovascular: denies: Palpitations, Chest pain, Edema, Lightheadedness, Syncope - Respiratory Respiratory: reports: Cough, Sputum production - Gastrointestinal Gastrointestinal: denies: Abdominal pain, Constipation, Diarrhea, Nausea, Vomiting, Reflux/heartburn Exam - Vital Signs Vital Signs: Vital Signs x48h Temp Pulse Resp BP Pulse Ox O2 Flow Rate 04/28/24 11:44 37.3 C 04/28/24 11:21 38.1 C H 99 18 151/84 H 92 1.5 04/28/24 09:21 37.8 C 98 20 142/71 H 92 1.5 04/28/24 07:34 104 H 20 134/97 H 91 L 04/28/24 07:00 95 22 134/97 H 99 2 04/28/24 06:58 104 H 22 2 04/28/24 06:30 36.1 C L 103 H 24 111/80 83 L - Physical Exam General Appearance: positive: No acute distress Eyes Bilateral: positive: Normal inspection Respiratory: positive: Wheezes (on inspiration), Other (Loud blow on expiration) Cardiovascular: positive: Tachycardia Abdomen: positive: Non-tender, Nml bowel sounds, No distention Skin: positive: Color nml Extremities: positive: No pedal edema Neurologic/Psychiatric: positive: Oriented x3 Conclusion/Plan - Problem List (1) Acute hypoxic respiratory failure Conclusion/Plan: Chest X-ray showed cardiomegaly with hazy left lower lobe opacities. Which could represent developing pneumonia vs atelectasis/edema. Albuterol 5 mg inhalation given. Incentive spirometry ordered. (2) Pneumonia Conclusion/Plan: Chest X-ray showed cardiomegaly with hazy left lower lobe opacities. Which could represent developing pneumonia vs atelectasis/edema. Albuterol 5mg inhalation g iven. Patient treated with emperic antibiotic IV Azitromycin 500 mg and Ceftriaxone 100 mls @ 200 mls/hr. Qualifiers: Pneumonia type: due to unspecified organism Laterality: left Lung location: lower lobe of lung Qualified Code(s): J18.9 - Pneumonia, unspecified organism (3) CHF (congestive heart failure) Conclusion/Plan: EKG showed sinus tachycardia, atrial premature complex, Incomplete RBBB and LAFB, and nonspecific repol abnormality of lateral leads. Troponin at 17.1 on admission and was elevated to 26.9 3 hours after, she then got a repeat troponin 3 hours after it was 40.4. BNP at 297. Repeat troponin at 6 pm. Started Lasix 40 mg given. Started Heparin 5,000 units BID. (4) Urinary tract infection Conclusion/Plan: Urinalysis showed high protein, RBC, WBC, and moderate occult blood and bacteria with trace leukocyte esterase. She was given Ceftriaxone 1 g IM. Qualifiers: Urinary tract infection type: acute cystitis Hematuria presence: with hematuria Qualified Code(s): N30.01 - Acute cystitis with hematuria (5) Hypertension Conclusion/Plan: Continue home medication Hydrochlorothiazide 12.5 mg tablet PO daily. (6) Status post mitral valve repair Conclusion/Plan: Continue aspirin 81 mg PO daily. (7) Rheumatoid arthritis Conclusion/Plan: Continue Leflunomide 20 mg tablet PO daily and Hydroxychloroquine 200 tablets PO BID. (8) Dehydration Conclusion/Plan: Normal saline 1,000 mls given. Observe. (9) Hypokalemia Conclusion/Plan: IV Potassium given @ 100 mls/hr. Order magnesium labs tomorrow morning. - Lab Results Fish Bones: 04/28/24 06:54 04/28/24 06:54
[2024-04-28] MEDS ORDERED: oxyCODONE 5 MG TABLET PO PRN (13:06)
[2024-04-28] MEDS ORDERED: SODIUM CHLORIDE FLUSH 0.9% 10 ML SYRINGE IVP PRN (13:06)
[2024-04-28] MEDS: FUROSEMIDE 40 MG/4 ML VIAL IVP STA (13:47)
[2024-04-28] MEDS: POTASSIUM CHLORIDE 20 MEQ TABLET PO STA (13:47)
--- NOTE | 2024-04-28 14:15 | PHARMACY PROGRESS NOTE ---
- Best Possible Medication History Admit Date and Time: 04/28/24 7575 Processed by: Pharmacy Medications reviewed in ED?: Yes Medication History completed: Yes Patient Interview: Completed Secondary Source(s): Insurance records (Medication reconciliation completed by diploma pharmacy technicianMaritza.) As the person ultimately responsible for medication therapy, providers are able to order a medication from an existing home medication list in [facility] via the "Reconcile Routine" prior to Confirmation of that medication by medical support assistant. Such practice is discouraged except when the physician, in their clinical judgment, deems that a medical need exists for a medication without regard to previous use.
[2024-04-28] MEDS: SODIUM CHLORIDE FLUSH 0.9% 10 ML SYRINGE IVP SCH (16:31)
[2024-04-28] MEDS: FUROSEMIDE 20 MG/2 ML VIAL IVP SCH (16:31)
[2024-04-28] MEDS ORDERED: BENZOCAINE/MENTHOL LOZENGE MM PRN (21:30)
[2024-04-28] MEDS: HYDROXYCHLOROQUINE 200 MG TABLET PO SCH (21:35)
[2024-04-28] MEDS: HEPARIN 5,000 UNIT/ML VIAL SUBQ SCH (21:35)
[2024-04-28] MEDS: traZODone 50 MG TABLET PO SCH (21:35)
[2024-04-28] MEDS: PHENOL THROAT SPRAY 177 ML MM PRN (21:43)
[2024-04-29] MEDS ORDERED: ACETAMINOPHEN 325 MG TABLET PO PRN (01:06)
[2024-04-29 08:05] LABS: BASOPHILS # (AUTO) 0.1 10^3/uL (0.0-0.1); BASOPHILS % (AUTO) 0.7 %; EOSINOPHILS % (AUTO) 0.5 %; HCT - HEMATOCRIT 37.2 % (37.0-47.0); HGB - HEMOGLOBIN 12.2 g/dL (12.0-16.0); LYMPHOCYTES # (AUTO) 0.8 10^3/uL (1.5-3.5); LYMPHOCYTES % (AUTO) 9.5 %; MEAN CORPUSCULAR HGB CONC 32.8 g/dL (32.0-36.0); MEAN CORPUSCULAR VOLUME 94.7 fL (81.0-99.0); MEAN PLATELET VOLUME 11.1 fL (7.9-10.8); MONOCYTES # (AUTO) 0.8 10^3/uL (0.0-1.0); MONOCYTES % (AUTO) 9.5 %; NEUTROPHILS # (AUTO) 6.9 10^3/uL (1.5-6.6); NEUTROPHILS % (AUTO) 79.5 %; PLT - PLATELET COUNT 144 10^3/uL (130-450); RED BLOOD COUNT 3.93 10^6/uL (4.20-5.40); RED CELL DISTRIBUTION WIDTH 13.2 % (12.0-15.0); WHITE BLOOD COUNT 8.7 x10^3/uL (4.8-10.8)
[2024-04-29 08:27] LABS: CALCIUM 8.7 mg/dL (8.5-10.3); CREATININE 0.7 mg/dL (0.6-1.3); MAGNESIUM 1.7 mg/dL (1.7-2.3); POTASSIUM 2.8 mmol/L (3.5-4.5)
[2024-04-29] MEDS: cefTRIAXone 1 GM in SODIUM CHLORIDE 0.9% MINIBAG 100 ML IV SCH (08:38)
[2024-04-29] MEDS: ASPIRIN EC 81 MG TABLET PO SCH (08:38)
[2024-04-29] MEDS: hydroCHLOROthiazide 12.5 MG CAPSULE PO SCH (08:38)
[2024-04-29] MEDS: CHOLECALCIFEROL 25 MCG TABLET PO SCH (08:38)
[2024-04-29] MEDS: LEFLUNOMIDE 20 MG PO SCH (08:39)
[2024-04-29] MEDS: AZITHROMYCIN INJ 500 MG in SODIUM CHLORIDE 0.9% 250 ML IV SCH (09:25)
[2024-04-29] MEDS: POTASSIUM CHLORIDE 20 MEQ TABLET PO SCH (11:04)
--- NOTE | 2024-04-29 15:55 | PROVIDER PROGRESS NOTE ---
Assessment/Plan - Problem List (1) Acute hypoxic respiratory failure Assessment/Plan: (1) Acute hypoxic respiratory failure Conclusion/Plan: requiring 2L NC here in the ED. She has received albuterol in the emergency department which has helped her feel somewhat better. She has been having a productive cough at home for 5 days she also has noticed that she cannot lay flat in bed at night. (2) Pneumonia Conclusion/Plan: Chest X-ray showed cardiomegaly with hazy left lower lobe opacities. Which could represent developing pneumonia vs atelectasis/edema. Treated empirically with azithromycin and ceftriaxone. Will withhold steroids given the fact that her O2 sats are improving with albuterol/ Atrovent nebs. Qualifiers: Pneumonia type: due to unspecified organism Laterality: left Lung location: lower lobe of lung Qualified Code(s): J18.9 - Pneumonia, unspecified organism (3) CHF (congestive heart failure) Conclusion/Plan: EKG showed sinus tachycardia. We do not have old EKGs for comparison. Troponin at 17.1 on admission and was elevated to 26.9 On repeat then 40.4. BNP at 297. I have ordered repeat troponin at 6 pm. I have ordered 20 mg of Lasix.I will order echocardiogram. However I am suspicious that this service will not be available until after she is stable for discharge. (4) Urinary tract infection Conclusion/Plan: Urinalysis Positive. She has been given ceftriaxone for her pneumonia. Urine culture and sensitivity pending Qualifiers: Urinary tract infection type: acute cystitis Hematuria presence: with hematuria Qualified Code(s): N30.01 - Acute cystitis with hematuria (5) Hypertension Conclusion/Plan: Continue home medication Hydrochlorothiazide 12.5 mg tablet PO daily. (6) Status post mitral valve repair Conclusion/Plan: Continue aspirin 81 mg PO daily. She has cardiology follow-up coming on 05/08 at [facility] in [place]. This is where she had her valve replaced in 2008. (7) Rheumatoid arthritis Conclusion/Plan: Continue Leflunomide 20 mg tablet PO daily and Hydroxychloroquine 200 tablets PO BID. - Current Meds Current Meds: Current Medications Generic Name Dose Route Start Last Admin Trade Name Freq PRN Reason Stop Dose Admin Aspirin 81 mg 04/29/24 09:00 04/29/24 08:38 Aspirin Ec 81 Mg Tablet PO 81 mg DAILY ARGENIS Administration Cholecalciferol 25 mcg 04/29/24 09:00 04/29/24 08:38 Cholecalciferol 25 Mcg Tablet PO 25 mcg DAILY ARGENIS Administration Heparin Sodium (Porcine) 5,000 unit 04/28/24 21:00 04/29/24 08:38 Heparin 5,000 Unit/Ml Vial SUBQ 5,000 unit BID ARGENIS Administration Hydrochlorothiazide 12.5 mg 04/29/24 09:00 04/29/24 08:38 Hydrochlorothiazide 12.5 Mg Capsule PO 12.5 mg DAILY ARGENIS Administration Hydroxychloroquine Sulfate 200 mg 04/28/24 21:00 04/29/24 08:38 Hydroxychloroquine 200 Mg Tablet PO 200 mg BID ARGENIS Administration Ceftriaxone Sodium 1 gm/ 100 mls @ 200 mls/hr 04/29/24 09:00 04/29/24 09:39 Sodium Chloride IV 05/02/24 09:29 Infused DAILY ARGENIS Infusion Azithromycin 500 mg/ Sodium 250 mls @ 250 mls/hr 04/29/24 09:00 04/29/24 11:03 Chloride IV 04/30/24 09:59 Infused DAILY ARGENIS Infusion Patient Own Med ( 1 each 04/29/24 09:00 04/29/24 08:39 Leflunomide 20mg Tab PO Not Given ) DAILY ARGENIS Phenol/Menthol 2 sprays 04/28/24 21:30 04/28/24 21:43 Phenol Throat [place] 177 Ml MM 2 sprays Q2HR PRN Administration Throat Pain Potassium Chloride 40 meq 04/29/24 11:00 04/29/24 11:04 Potassium Chloride 20 Meq Tablet PO 05/01/24 10:59 40 meq BID ARGENIS Administration Sodium Chloride 10 ml 04/28/24 17:00 04/29/24 08:39 Sodium Chloride Flush 0.9% 10 Ml Syringe IVP 10 ml 0100,0900,1700 ARGENIS Administration Trazodone HCl 50 mg 04/28/24 21:00 04/28/24 21:35 Trazodone 50 Mg Tablet PO 50 mg QPM ARGENIS Administration - Lab Result Fish Bone Diagrams: 04/29/24 07:34 04/29/24 07:34 - Additional Planning My Orders: My Active Orders 04/28/24 21:00 traZODone [Desyrel] 50 mg PO QPM 04/29/24 11:00 Potassium Chloride [K-Dur] 40 meq PO BID 04/30/24 05:00 BMP - BASIC METABOLIC PANEL [CHEM] DAILYLAB CBC [CBC - COMP BLD CT W/AUTO DIFF] [HEME] DAILYLAB 05/01/24 05:00 BMP - BASIC METABOLIC PANEL [CHEM] DAILYLAB CBC [CBC - COMP BLD CT W/AUTO DIFF] [HEME] DAILYLAB 05/02/24 05:00 BMP - BASIC METABOLIC PANEL [CHEM] DAILYLAB CBC [CBC - COMP BLD CT W/AUTO DIFF] [HEME] DAILYLAB 05/03/24 05:00 BMP - BASIC METABOLIC PANEL [CHEM] DAILYLAB CBC [CBC - COMP BLD CT W/AUTO DIFF] [HEME] DAILYLAB 05/04/24 05:00 BMP - BASIC METABOLIC PANEL [CHEM] DAILYLAB CBC [CBC - COMP BLD CT W/AUTO DIFF] [HEME] DAILYLAB Subjective - Subjective Patient Reports: Feeling Better, Resting Comfortably Objective Vital Signs: Vital Signs - 24 hr 04/28/24 04/28/24 04/28/24 17:00 17:05 22:20 Temperature Heart Rate [ Brachial] Respiratory Rate Blood Pressure [Right Brachial artery] O2 Saturation 88 L 93 If not protocol 2 2 : Oxygen Flow, liters/minute 04/28/24 04/29/24 04/29/24 23:42 04:36 07:47 Temperature 37.1 C 37.0 C 37.1 C Heart Rate [ 92 92 94 Brachial] Respiratory 20 20 18 Rate Blood Pressure 128/64 127/65 118/69 [Right Brachial artery] O2 Saturation 96 91 L 94 If not protocol 2 2 2 : Oxygen Flow, liters/minute 04/29/24 04/29/24 11:04 13:08 Temperature 36.7 C Heart Rate [ 83 Brachial] Respiratory 22 Rate Blood Pressure 116/69 [Right Brachial artery] O2 Saturation 96 If not protocol 2 2 : Oxygen Flow, liters/minute Oxygen O2 Source Nasal cannula Oxygen Flow Rate 2 I&O (Last 24 Hrs): Intake and Output Totals x24h 04/27/24 04/28/24 04/29/24 23:59 23:59 23:59 Intake Total 2770 1050 Output Total 1050 1400 Balance 1720 -350 General: Alert, Oriented x3, Cooperative, No acute distress Cardiovascular: Regular rate, Normal S1, Normal S2, No murmurs Respiratory: Chest non-tender, No respiratory distress, Breath sounds nml - Results Results: Laboratory Results WBC 8.7 x10^3/uL (4.8-10.8) 04/29/24 07:34 RBC 3.93 10^6/uL (4.20-5.40) L 04/29/24 07:34 Hgb 12.2 g/dL (12.0-16.0) 04/29/24 07:34 Hct 37.2 % (37.0-47.0) 04/29/24 07:34 MCV 94.7 fL (81.0-99.0) 04/29/24 07:34 MCH 31.0 pg (27.0-31.0) 04/29/24 07:34 MCHC 32.8 g/dL (32.0-36.0) 04/29/24 07:34 RDW 13.2 % (12.0-15.0) 04/29/24 07:34 Plt Count 144 10^3/uL (130-450) 04/29/24 07:34 MPV 11.1 fL (7.9-10.8) H 04/29/24 07:34 Neut # (Auto) 6.9 10^3/uL (1.5-6.6) H 04/29/24 07:34 Lymph # (Auto) 0.8 10^3/uL (1.5-3.5) L 04/29/24 07:34 [place] # (Auto) 0.8 10^3/uL (0.0-1.0) 04/29/24 07:34 Eos # (Auto) 0.0 10^3/uL (0.0-0.7) 04/29/24 07:34 Baso # (Auto) 0.1 10^3/uL (0.0-0.1) 04/29/24 07:34 Absolute Nucleated RBC 0.00 x10^3/uL 04/29/24 07:34 Nucleated RBC % 0.0 /100WBC 04/29/24 07:34 PT 14.7 secs (9.9-12.6) H 04/28/24 06:54 INR 1.4 (0.8-1.2) H 04/28/24 06:54 Sodium 134 mmol/L (135-145) L 04/29/24 07:34 Potassium 2.8 mmol/L (3.5-4.5) L 04/29/24 07:34 Chloride 96 mmol/L (101-111) L 04/29/24 07:34 Carbon Dioxide 29 mmol/L (21-32) 04/29/24 07:34 Anion Gap 9.0 (6-13) 04/29/24 07:34 BUN 14 mg/dL (6-20) 04/29/24 07:34 Creatinine 0.7 mg/dL (0.6-1.3) 04/29/24 07:34 Estimated GFR (MDRD) 80 (>89) L 04/29/24 07:34 Glucose 93 mg/dL (74-104) 04/29/24 07:34 Calcium 8.7 mg/dL (8.5-10.3) 04/29/24 07:34 Magnesium 1.7 mg/dL (1.7-2.3) 04/29/24 07:34 Total Bilirubin 1.0 mg/dL (0.2-1.0) 04/28/24 06:54 AST 15 IU/L (10-42) 04/28/24 06:54 ALT 12 IU/L (10-60) 04/28/24 06:54 Alkaline Phosphatase 58 IU/L (42-121) 04/28/24 06:54 Troponin I High Sens 42.1 ng/L (2.3-14.8) H* 04/28/24 17:55 B-Natriuretic Peptide 432 pg/mL (5-100) H 04/29/24 07:34 Total Protein 7.9 g/dL (6.4-8.9) 04/28/24 06:54 Albumin 4.7 g/dL (3.2-5.5) 04/28/24 06:54 Globulin 3.2 g/dL (2.1-4.2) 04/28/24 06:54 Albumin/Globulin Ratio 1.5 (1.0-2.2) 04/28/24 06:54 Urine Color YELLOW 04/28/24 08:54 Urine Clarity SL. CLOUDY (CLEAR) 04/28/24 08:54 Urine pH 6.0 PH (5.0-7.5) 04/28/24 08:54 Ur Specific [place] >=1.030 (1.002-1.030) H 04/28/24 08:54 Urine Protein 30 mg/dL (NEGATIVE) H 04/28/24 08:54 Urine Glucose (UA) NEGATIVE mg/dL (NEGATIVE) 04/28/24 08:54 Urine Ketones NEGATIVE mg/dL (NEGATIVE) 04/28/24 08:54 Urine Occult Blood MODERATE (NEGATIVE) H 04/28/24 08:54 Urine Nitrite NEGATIVE (NEGATIVE) 04/28/24 08:54 Urine Bilirubin NEGATIVE (NEGATIVE) 04/28/24 08:54 Urine Urobilinogen 0.2 (NORMAL) E.U./dL (NORMAL) 04/28/24 08:54 Ur Leukocyte Esterase TRACE (NEGATIVE) H 04/28/24 08:54 Urine RBC 6-10 /HPF (0-5) H 04/28/24 08:54 Urine WBC 6-10 /HPF (0-5) H 04/28/24 08:54 Urine WBC Clumps PRESENT 04/28/24 08:54 Ur Squamous Epith Cells NONE SEEN (<= Few) 04/28/24 08:54 Urine Bacteria Moderate /HPF (None Seen) H 04/28/24 08:54 Urine Casts 0-2 Hyaline Casts /LPF 04/28/24 08:54 Ur Microscopic Review INDICATED 04/28/24 08:54 Urine Culture Comments INDICATED 04/28/24 08:54 Nasal Adenovirus (PCR) NOT DETECTED 04/28/24 07:03 Nasal B. parapertussis DNA (PCR) NOT DETECTED 04/28/24 07:03 Nasal Coronavir 229E PCR NOT DETECTED 04/28/24 07:03 Nasal Coronavir HKU1 PCR NOT DETECTED 04/28/24 07:03 Nasal Coronavir NL63 PCR NOT DETECTED 04/28/24 07:03 Nasal Coronavir OC43 PCR NOT DETECTED 04/28/24 07:03 Nasal Enterovir/Rhinovir PCR NOT DETECTED 04/28/24 07:03 Nasal Influenza B PCR NOT DETECTED 04/28/24 07:03 Nasal Influenza A PCR NOT DETECTED 04/28/24 07:03 Nasal Parainfluen 1 PCR NOT DETECTED 04/28/24 07:03 Nasal Parainfluen 2 PCR NOT DETECTED 04/28/24 07:03 Nasal Parainfluen 3 PCR NOT DETECTED 04/28/24 07:03 Nasal Parainfluen 4 PCR NOT DETECTED 04/28/24 07:03 Nasal RSV (PCR) NOT DETECTED 04/28/24 07:03 Nasal B.pertussis DNA PCR NOT DETECTED 04/28/24 07:03 Nasal C.pneumoniae (PCR) NOT DETECTED 04/28/24 07:03 [place] Human Metapneumo PCR NOT DETECTED 04/28/24 07:03 Nasal M.pneumoniae (PCR) DETECTED A 04/28/24 07:03 Nasal SARS-CoV-2 (PCR) NOT DETECTED 04/28/24 07:03
[2024-04-30] MEDS: IPRATROPIUM/ALBUTEROL 3 ML NEB INH PRN (00:37)
[2024-04-30 05:34] LABS: BASOPHILS # (AUTO) 0.1 10^3/uL (0.0-0.1); BASOPHILS % (AUTO) 0.9 %; EOSINOPHILS # (AUTO) 0.1 10^3/uL (0.0-0.7); EOSINOPHILS % (AUTO) 1.9 %; HCT - HEMATOCRIT 34.7 % (37.0-47.0); HGB - HEMOGLOBIN 11.1 g/dL (12.0-16.0); LYMPHOCYTES # (AUTO) 0.8 10^3/uL (1.5-3.5); LYMPHOCYTES % (AUTO) 12.2 %; MEAN CORPUSCULAR HEMOGLOBIN 30.6 pg (27.0-31.0); MEAN CORPUSCULAR VOLUME 95.6 fL (81.0-99.0); MEAN PLATELET VOLUME 11.5 fL (7.9-10.8); MONOCYTES # (AUTO) 0.8 10^3/uL (0.0-1.0); MONOCYTES % (AUTO) 12.2 %; NEUTROPHILS # (AUTO) 4.7 10^3/uL (1.5-6.6); NEUTROPHILS % (AUTO) 72.5 %; PLT - PLATELET COUNT 148 10^3/uL (130-450); RED BLOOD COUNT 3.63 10^6/uL (4.20-5.40); RED CELL DISTRIBUTION WIDTH 13.1 % (12.0-15.0); WHITE BLOOD COUNT 6.5 x10^3/uL (4.8-10.8)
[2024-04-30 06:18] LABS: CALCIUM 8.8 mg/dL (8.5-10.3); CREATININE 0.6 mg/dL (0.6-1.3); POTASSIUM 3.6 mmol/L (3.5-4.5)
[2024-04-30] MEDS: FUROSEMIDE 40 MG/4 ML VIAL IVP SCH (08:12)
[2024-04-30] MEDS: PANTOPRAZOLE 40 MG TABLET PO SCH (09:46)
[2024-04-30] MEDS: AZITHROMYCIN 250 MG TABLET PO ONE (10:31)
--- NOTE | 2024-04-30 14:09 | PROVIDER PROGRESS NOTE ---
Assessment/Plan - Problem List (1) Acute hypoxic respiratory failure Assessment/Plan: (1) Acute hypoxic respiratory failure Conclusion/Plan: --Weaned to 1L via NC. Continue to wean. (2) Pneumonia Conclusion/Plan: --Continue azithromycin and ceftriaxone. (3) CHF (congestive heart failure) Conclusion/Plan: --Continue IV lasix 40 mg. Dose given today. She will likely need PO lasix on discharge. Unfortunately no TTE available over the weekend. (4) Urinary tract infection Conclusion/Plan: --Completed course of IV ceftriaxone. Qualifiers: Urinary tract infection type: acute cystitis Hematuria presence: with hematuria Qualified Code(s): N30.01 - Acute cystitis with hematuria (5) Hypertension Conclusion/Plan: Continue home medication Hydrochlorothiazide 12.5 mg tablet PO daily. (6) Status post mitral valve repair Conclusion/Plan: Continue aspirin 81 mg PO daily. She has cardiology follow-up coming on 05/08 at [facility] in [place]. This is where she had her valve replaced in 2008. (7) Rheumatoid arthritis Conclusion/Plan: Continue Leflunomide 20 mg tablet PO daily and Hydroxychloroquine 200 tablets PO BID. Dispo: Anticipate discharge tomorrow after successful weaning off oxygen. - Current Meds Current Meds: Current Medications Generic Name Dose Route Start Last Admin Trade Name Freq PRN Reason Stop Dose Admin Albuterol/Ipratropium 3 ml 04/28/24 13:53 04/30/24 00:37 Ipratropium/Albuterol 3 Ml Neb INH 3 ml Q4HR PRN Administration Wheezing/SOB Aspirin 81 mg 04/29/24 09:00 04/30/24 08:13 Aspirin Ec 81 Mg Tablet PO 81 mg DAILY ARGENIS Administration Cholecalciferol 25 mcg 04/29/24 09:00 04/30/24 08:13 Cholecalciferol 25 Mcg Tablet PO 25 mcg DAILY ARGENIS Administration Heparin Sodium (Porcine) 5,000 unit 04/28/24 21:00 04/30/24 08:13 Heparin 5,000 Unit/Ml Vial SUBQ 5,000 unit BID ARGENIS Administration Hydrochlorothiazide 12.5 mg 04/29/24 09:00 04/30/24 08:13 Hydrochlorothiazide 12.5 Mg Capsule PO 12.5 mg DAILY ARGENIS Administration Hydroxychloroquine Sulfate 200 mg 04/28/24 21:00 04/30/24 08:13 Hydroxychloroquine 200 Mg Tablet PO 200 mg BID ARGENIS Administration Pantoprazole Sodium 40 mg 04/30/24 09:00 04/30/24 09:46 Pantoprazole 40 Mg Tablet PO 40 mg QDAC ARGENIS Administration Patient Own Med ( 1 each 04/29/24 09:00 04/30/24 08:14 Leflunomide 20mg Tab PO Not Given ) DAILY ARGENIS Phenol/Menthol 2 sprays 04/28/24 21:30 04/28/24 21:43 Phenol Throat [place] 177 Ml MM 2 sprays Q2HR PRN Administration Throat Pain Potassium Chloride 40 meq 04/29/24 11:00 04/30/24 08:13 Potassium Chloride 20 Meq Tablet PO 05/01/24 10:59 40 meq BID ARGENIS Administration Sodium Chloride 10 ml 04/28/24 17:00 04/30/24 08:12 Sodium Chloride Flush 0.9% 10 Ml Syringe IVP 10 ml 0100,0900,1700 ARGENIS Administration Trazodone HCl 50 mg 04/28/24 21:00 04/29/24 21:20 Trazodone 50 Mg Tablet PO 50 mg QPM ARGENIS Administration - Lab Result Fish Bone Diagrams: 04/30/24 05:00 04/30/24 05:15 - Additional Planning My Orders: My Active Orders 04/30/24 09:00 Pantoprazole [Protonix] 40 mg PO QDAC 05/01/24 05:00 BMP - BASIC METABOLIC PANEL [CHEM] DAILYLAB CBC [CBC - COMP BLD CT W/AUTO DIFF] [HEME] DAILYLAB 05/02/24 05:00 BMP - BASIC METABOLIC PANEL [CHEM] DAILYLAB CBC [CBC - COMP BLD CT W/AUTO DIFF] [HEME] DAILYLAB 05/03/24 05:00 BMP - BASIC METABOLIC PANEL [CHEM] DAILYLAB CBC [CBC - COMP BLD CT W/AUTO DIFF] [HEME] DAILYLAB 05/04/24 05:00 BMP - BASIC METABOLIC PANEL [CHEM] DAILYLAB CBC [CBC - COMP BLD CT W/AUTO DIFF] [HEME] DAILYLAB Subjective - Subjective Patient Reports: Feeling Better, Resting Comfortably, No Complaints Objective Vital Signs: Vital Signs - 24 hr 04/29/24 04/29/24 04/29/24 16:14 20:29 20:30 Temperature 36.5 C 37.1 C Heart Rate [ 73 97 Brachial] Respiratory 22 22 Rate Blood Pressure 111/60 122/77 [Right Brachial artery] O2 Saturation 96 96 If not protocol 2 2 2 : Oxygen Flow, liters/minute 04/30/24 04/30/24 04/30/24 00:11 00:47 04:36 Temperature 36.8 C 36.7 C Heart Rate [ 72 105 H Brachial] Respiratory 22 18 Rate Blood Pressure 121/74 129/77 [Right Brachial artery] O2 Saturation 92 93 If not protocol 2 2 2 : Oxygen Flow, liters/minute 04/30/24 04/30/24 04/30/24 07:25 07:52 11:09 Temperature 36.5 C Heart Rate [ 77 Brachial] Respiratory 16 Rate Blood Pressure 116/65 [Right Brachial artery] O2 Saturation 95 92 If not protocol 2 2 1 : Oxygen Flow, liters/minute 04/30/24 13:06 Temperature 36.8 C Heart Rate [ 81 Brachial] Respiratory 18 Rate Blood Pressure 114/65 [Right Brachial artery] O2 Saturation 96 If not protocol 1 : Oxygen Flow, liters/minute Oxygen O2 Source Nasal cannula Oxygen Flow Rate 2 I&O (Last 24 Hrs): Intake and Output Totals x24h 04/28/24 04/29/24 04/30/24 23:59 23:59 23:59 Intake Total 2770 1590 725.833 Output Total 1050 1900 1150 Balance 1720 -310 -424.167 General: Alert, Oriented x3, Cooperative, No acute distress Neuro: Alert, CN 2-12 Grossly Intact, Oriented Times 3 Cardiovascular: Regular rate, Normal S1, Normal S2, No murmurs Respiratory: Chest non-tender, No respiratory distress, Breath sounds nml Abdomen: Normal bowel sounds, Soft, No tenderness, No hepatospenomegaly, No masses - Results Results: Laboratory Results WBC 6.5 x10^3/uL (4.8-10.8) 04/30/24 05:00 RBC 3.63 10^6/uL (4.20-5.40) L 04/30/24 05:00 Hgb 11.1 g/dL (12.0-16.0) L 04/30/24 05:00 Hct 34.7 % (37.0-47.0) L 04/30/24 05:00 MCV 95.6 fL (81.0-99.0) 04/30/24 05:00 MCH 30.6 pg (27.0-31.0) 04/30/24 05:00 MCHC 32.0 g/dL (32.0-36.0) 04/30/24 05:00 RDW 13.1 % (12.0-15.0) 04/30/24 05:00 Plt Count 148 10^3/uL (130-450) 04/30/24 05:00 MPV 11.5 fL (7.9-10.8) H 04/30/24 05:00 Neut # (Auto) 4.7 10^3/uL (1.5-6.6) 04/30/24 05:00 Lymph # (Auto) 0.8 10^3/uL (1.5-3.5) L 04/30/24 05:00 [place] # (Auto) 0.8 10^3/uL (0.0-1.0) 04/30/24 05:00 Eos # (Auto) 0.1 10^3/uL (0.0-0.7) 04/30/24 05:00 Baso # (Auto) 0.1 10^3/uL (0.0-0.1) 04/30/24 05:00 Absolute Nucleated RBC 0.00 x10^3/uL 04/30/24 05:00 Nucleated RBC % 0.0 /100WBC 04/30/24 05:00 PT 14.7 secs (9.9-12.6) H 04/28/24 06:54 INR 1.4 (0.8-1.2) H 04/28/24 06:54 Sodium 137 mmol/L (135-145) 04/30/24 05:15 Potassium 3.6 mmol/L (3.5-4.5) 04/30/24 05:15 Chloride 101 mmol/L (101-111) 04/30/24 05:15 Carbon Dioxide 29 mmol/L (21-32) 04/30/24 05:15 Anion Gap 7.0 (6-13) 04/30/24 05:15 BUN 14 mg/dL (6-20) 04/30/24 05:15 Creatinine 0.6 mg/dL (0.6-1.3) 04/30/24 05:15 Estimated GFR (MDRD) 96 (>89) 04/30/24 05:15 Glucose 107 mg/dL (74-104) H 04/30/24 05:15 Calcium 8.8 mg/dL (8.5-10.3) 04/30/24 05:15 Magnesium 1.7 mg/dL (1.7-2.3) 04/29/24 07:34 Total Bilirubin 1.0 mg/dL (0.2-1.0) 04/28/24 06:54 AST 15 IU/L (10-42) 04/28/24 06:54 ALT 12 IU/L (10-60) 04/28/24 06:54 Alkaline Phosphatase 58 IU/L (42-121) 04/28/24 06:54 Troponin I High Sens 17.9 ng/L (2.3-14.8) H* 04/30/24 05:00 B-Natriuretic Peptide 432 pg/mL (5-100) H 04/29/24 07:34 Total Protein 7.9 g/dL (6.4-8.9) 04/28/24 06:54 Albumin 4.7 g/dL (3.2-5.5) 04/28/24 06:54 Globulin 3.2 g/dL (2.1-4.2) 04/28/24 06:54 Albumin/Globulin Ratio 1.5 (1.0-2.2) 04/28/24 06:54 Urine Color YELLOW 04/28/24 08:54 Urine Clarity SL. CLOUDY (CLEAR) 04/28/24 08:54 Urine pH 6.0 PH (5.0-7.5) 04/28/24 08:54 Ur Specific [place] >=1.030 (1.002-1.030) H 04/28/24 08:54 Urine Protein 30 mg/dL (NEGATIVE) H 04/28/24 08:54 Urine Glucose (UA) NEGATIVE mg/dL (NEGATIVE) 04/28/24 08:54 Urine Ketones NEGATIVE mg/dL (NEGATIVE) 04/28/24 08:54 Urine Occult Blood MODERATE (NEGATIVE) H 04/28/24 08:54 Urine Nitrite NEGATIVE (NEGATIVE) 04/28/24 08:54 Urine Bilirubin NEGATIVE (NEGATIVE) 04/28/24 08:54 Urine Urobilinogen 0.2 (NORMAL) E.U./dL (NORMAL) 04/28/24 08:54 Ur Leukocyte Esterase TRACE (NEGATIVE) H 04/28/24 08:54 Urine RBC 6-10 /HPF (0-5) H 04/28/24 08:54 Urine WBC 6-10 /HPF (0-5) H 04/28/24 08:54 Urine WBC Clumps PRESENT 04/28/24 08:54 Ur Squamous Epith Cells NONE SEEN (<= Few) 04/28/24 08:54 Urine Bacteria Moderate /HPF (None Seen) H 04/28/24 08:54 Urine Casts 0-2 Hyaline Casts /LPF 04/28/24 08:54 Ur Microscopic Review INDICATED 04/28/24 08:54 Urine Culture Comments INDICATED 04/28/24 08:54 Nasal Adenovirus (PCR) NOT DETECTED 04/28/24 07:03 Nasal B. parapertussis DNA (PCR) NOT DETECTED 04/28/24 07:03 Nasal Coronavir 229E PCR NOT DETECTED 04/28/24 07:03 Nasal Coronavir HKU1 PCR NOT DETECTED 04/28/24 07:03 Nasal Coronavir NL63 PCR NOT DETECTED 04/28/24 07:03 Nasal Coronavir OC43 PCR NOT DETECTED 04/28/24 07:03 Nasal Enterovir/Rhinovir PCR NOT DETECTED 04/28/24 07:03 Nasal Influenza B PCR NOT DETECTED 04/28/24 07:03 Nasal Influenza A PCR NOT DETECTED 04/28/24 07:03 Nasal Parainfluen 1 PCR NOT DETECTED 04/28/24 07:03 Nasal Parainfluen 2 PCR NOT DETECTED 04/28/24 07:03 Nasal Parainfluen 3 PCR NOT DETECTED 04/28/24 07:03 Nasal Parainfluen 4 PCR NOT DETECTED 04/28/24 07:03 Nasal RSV (PCR) NOT DETECTED 04/28/24 07:03 Nasal B.pertussis DNA PCR NOT DETECTED 04/28/24 07:03 Nasal C.pneumoniae (PCR) NOT DETECTED 04/28/24 07:03 [place] Human Metapneumo PCR NOT DETECTED 04/28/24 07:03 Nasal M.pneumoniae (PCR) DETECTED A 04/28/24 07:03 Nasal SARS-CoV-2 (PCR) NOT DETECTED 04/28/24 07:03
[2024-05-01 05:45] LABS: BASOPHILS # (AUTO) 0.1 10^3/uL (0.0-0.1); BASOPHILS % (AUTO) 1.2 %; EOSINOPHILS # (AUTO) 0.4 10^3/uL (0.0-0.7); EOSINOPHILS % (AUTO) 6.8 %; HCT - HEMATOCRIT 35.5 % (37.0-47.0); HGB - HEMOGLOBIN 11.5 g/dL (12.0-16.0); LYMPHOCYTES % (AUTO) 20.2 %; MEAN CORPUSCULAR HEMOGLOBIN 31.2 pg (27.0-31.0); MEAN CORPUSCULAR HGB CONC 32.4 g/dL (32.0-36.0); MEAN CORPUSCULAR VOLUME 96.2 fL (81.0-99.0); MEAN PLATELET VOLUME 11.2 fL (7.9-10.8); MONOCYTES # (AUTO) 0.6 10^3/uL (0.0-1.0); MONOCYTES % (AUTO) 12.4 %; NEUTROPHILS % (AUTO) 58.8 %; PLT - PLATELET COUNT 159 10^3/uL (130-450); RED BLOOD COUNT 3.69 10^6/uL (4.20-5.40); WHITE BLOOD COUNT 5.2 x10^3/uL (4.8-10.8)
[2024-05-01 06:04] LABS: CALCIUM 9.4 mg/dL (8.5-10.3); CREATININE 0.6 mg/dL (0.6-1.3); POTASSIUM 3.5 mmol/L (3.5-4.5)
[2024-05-01] MEDS: BENZONATATE 100 MG CAPSULE PO PRN (08:20)
[2024-05-01] MEDS: FUROSEMIDE 40 MG TABLET PO SCH (08:21)
--- NOTE | 2024-05-01 09:16 | Discharge Plan ---
Discharge Plan Problem Reviewed?: Yes Disposition: Home, Self Care Condition: Good Prescriptions: Amox/Clav 875/125 [Augmentin 875/125 Tab] 1 tablet PO Q12H 1 Days #2 tablet Azithromycin 500 mg PO DAILY #1 tablet Furosemide [Lasix] 40 mg PO Q2D #30 tab Diet: Cardiac Activity Restrictions: Activity as Tolerated Additional Instructions or Follow Up instructions: You were prescribed Lasix 40 mg to take whenever you feel your JVP and the onset of swelling. Please follow up with your Manager File for an updated echocardiogram and further management of medications. No Smoking: If you smoke, Please STOP! Call for help.
[2024-05-01 11:21] VITALS: BP 134/85; O2SAT 92
--- NOTE | 2024-05-01 11:36 | DISCHARGE SUMMARY ---
Discharge Summary Admit Date: 04/28/24 Discharge Date: 05/01/24 Discharging Provider: Sharad Galvez Code Status: Attempt Resuscitation Condition at Discharge: Good Discharge Disposition: 01 Home, Self Care - HPI History of Present Illness: Patient is a 79 y/o female with a hx of mitral valve repair and pneumonia presents to the ED with a cough. Her symptoms began 5 days ago and has gradually gotten worse. She was in the ED last July 2023 for pneumonia. She does water aerobic 3 times a week and she gets tired after. She has a cardiology appointment on 05/08. She has not been able to lay flat in bed. - HOSPITAL COURSE Hospital Course: Patient is an 79-year-old female who presented to the ED due to complaints of shortness of breath. Chest x-ray was performed which showed evidence of lower lobe opacities which could represent developing pneumonia versus edema. Patient was administered IV ceftriaxone and azithromycin. She was also started on IV Lasix due to concern for a heart failure exacerbation. She had no prior TTE available in the chart and we had no TTE services available in the hospital. Patient was initially hypoxic requiring 2 L of oxygen. She was successfully weaned off of oxygen with IV diuresis and antibiotic treatment. Patient was not hypoxic with ambulation and was discharged on oral Lasix 40 mg to take as needed. 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 - ALLERGIES Allergies/Adverse Reactions: Allergies Allergy/AdvReac Type Severity Reaction Status Date / Time No Known Drug Allergies Allergy Verified 12/12/23 09:52 - MEDICATIONS Home Medications: Ambulatory Orders Medication Instructions Recorded Confirmed Leflunomide [Arava] 20 mg PO DAILY 09/22/15 04/28/24 hydroCHLOROthiazide 12.5 mg PO DAILY 09/22/15 04/28/24 [Hydrochlorothiazide] Aspirin [Adult Aspirin] 1 tab PO DAILY 07/23/18 04/28/24 Cholecalciferol (Vitamin D3) 1 cap PO DAILY 07/23/18 04/28/24 [Vitamin D3] Multivitamin [Multiple Vitamins] 1 each PO DAILY 09/03/19 04/28/24 Hydroxychloroquine [Plaquenil] 200 mg PO BID 07/25/23 04/28/24 Krill/[place]-3/Dha/Epa/Lipids 1 each PO DAILY 04/28/24 04/28/24 [Krill Oil 350 mg Softgel] Amox/Clav 875/125 [Augmentin 1 tablet PO Q12H 1 Days #2 tablet 05/01/24 875/125 Tab] Azithromycin 500 mg PO DAILY #1 tablet 05/01/24 Furosemide [Lasix] 40 mg PO Q2D #30 tab 05/01/24 - PHYSICAL EXAM AT DISCHARGE General Appearance: positive: No acute distress, Alert Respiratory: positive: Chest non-tender, No respiratory distress, Breath sounds nml Cardiovascular: positive: Regular rate & rhythm, No murmur, No gallop Abdomen: positive: Non-tender, No organomegaly, Nml bowel sounds Extremities: positive: Non-tender, No pedal edema Neurologic/Psychiatric: positive: Oriented x3, CN's nml (2-12) - LABS Result Diagrams: 05/01/24 05:21 05/01/24 05:21 - FOLLOW UP Follow Up: Follow up with PCP and Cardiology. - TIME SPENT Time Spent in Discharge (Minutes): 30
== END 2024-05-01 11:45 | disposition home or self-care (01) | DRG 193 ==
LOC: ED 06:21 → MS2 13:07
PROVIDERS: ADMIT Physician Assistant Medical; ATTEND Family Medicine
DX: J15.7 Pneumonia due to Mycoplasma pneumoniae (principal); J18.9 Pneumonia, unspecified organism; I50.33 Acute on chronic diastolic (congestive) heart failure; J96.01 Acute respiratory failure with hypoxia; I45.2 Bifascicular block; I50.9 Heart failure, unspecified; N30.01 Acute cystitis with hematuria; I45.10 Unspecified right bundle-branch block; I49.1 Atrial premature depolarization; R00.0 Tachycardia, unspecified; I11.0 Hypertensive heart disease with heart failure; Z20.818 Contact with and (suspected) exposure to other bacterial communicable diseases; Z20.822 Contact with and (suspected) exposure to COVID-19; Z20.828 Contact with and (suspected) exposure to other viral communicable diseases; M06.9 Rheumatoid arthritis, unspecified; E86.0 Dehydration; E87.6 Hypokalemia; N64.52 Nipple discharge; Z79.82 Long term (current) use of aspirin; Z79.899 Other long term (current) drug therapy; Z95.2 Presence of prosthetic heart valve
CPT/HCPCS: 36415; 71045; 80048; 80053; 81001; 83735; 83880; 84484; 85025; 85610; 87086; 87181; 87633; 93005; 93307; 94640; 94761; 96365; 96366; 96367; 96368; 99285; A9270; 81003